=== PATIENT | female | born 1935 | race Caucasian/White ===

== ENCOUNTER 2016-03-21 15:27 | Emergency (ER) | payer MEDICARE, OTHER ==
[~2016-03-21] VITALS: Ht 157.5 cm; Wt 75.1 kg
[~2016-03-21 15:27] MED LIST: ASCO500C14 PO; ASP81TEC PO; ASPI-933 PO; CARV12.52 PO; CARV12.53 PO; CLOP75TA PO; CLPD75T PO; DOCU-161 PO; FURO20TA4 PO; FURO40TA4 PO; HYDR1TAB86 PO; LOPE2TAB17 PO; LVT.025T PO; NTR.4SL SL; PNT40TEC PO; ROSU5TAB PO
--- OUTSIDE RECORDS SUMMARY | 2016-03-21 15:34 | XMS REPORT | Continuity of Care Document ---
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 Name Role Phone JOHN LARKIN MD PCP Insurance Providers Payer Name Policy Number Subscriber Name Relationship [employer] Medicare [id number] Kathy Hall 16 Self / Same As Patient [employer] [id number] Kathy Hall 16 Self / Same As Patient Advance Directives Directive Response Recorded Date/Time Advance Directives No 01/25/14 9:16am Health Care Power of Promotions Representative No 01/25/14 9:16am Organ Donor No 01/25/14 9:16am Resuscitation Status Full Code 01/25/14 9:16am Problems Medical Problems Problem Onset Date Status ADVERSE MEDICATION REACTION Unknown Active Diarrhea Unknown Active UTI Unknown Active Closed head injury Unknown Active Facial laceration Unknown Active Visit for suture removal Unknown Active Visit for suture removal Unknown Active Thoracic back sprain Unknown Active Medications Medication Dose Route Sig Days/Qty Instructions Order Date Discontinued Date Status Aspirin 81 Mg PO DAILY 05/19/10 Active Carvedilol 1 Tab PO TWICE A DAY 05/19/10 01/26/13 Discontinued Furosemide (Lasix) 1 Tab PO DAILY 05/19/10 01/26/13 Discontinued Ascorbic Acid 500 Mg PO DAILY 05/19/10 Active Clopidogrel Bisulfate 1 Tab PO DAILY 05/19/10 01/26/13 Discontinued Rosuvastatin Calcium 5 Mg PO BEDTIME 05/19/10 Active Carvedilol (Coreg) 12.5 Mg PO TWICE A DAY 11/01/10 Active Clopidogrel Bisulfate 1 Each PO DAILY 11/01/10 01/26/13 Discontinued Furosemide (Lasix) 1 Each PO DAILY 11/01/10 01/26/13 Discontinued Rosuvastatin Calcium 1 Each PO DAILY 11/01/10 01/26/13 Discontinued Levothyroxine Sodium 1 Each PO DAILY 11/01/10 01/26/13 Discontinued Aspirin 81 Mg PO DAILY 11/01/10 01/26/13 Discontinued Nitroglycerin 0 SL NEEDED PRN CHEST PAIN 1 TAB EVERY 5 MIN X 3 DOSES NEEDED FOR CHEST PAIN 01/26/13 Active Loperamide HCl 0 PO DIRECTED PRN DIARRHEA EACH LOOSE STOOL. NOT TO EXCEED 8/24 HRS NEEDED FOR DIARRHEA 01/26/13 Active Hydrocodone Bit/Acetaminophen 0.5-1 Tab PO EVERY 6 HOURS PRN PAIN Active Furosemide (Lasix) 20 Mg PO DAILY 01/26/13 Active Pantoprazole Sodium 40 Mg PO DAILY@0700 30 Qty 02/01/13 Active Docusate Sodium 100 Mg PO THREE TIMES A DAY PRN CONSTIPATION Active Social History Social History Problem Response Recorded Date/Time Alcohol Use Denies Use 01/25/2014 9:16am Recreational Drug Use No 01/25/2014 9:16am Recent Foreign Travel No 01/25/2014 9:15am Smoking Status Never a Smoker 01/25/2014 9:16am Query Response Start Date Stop Date Smoking Status Never a Smoker Hospital Discharge Instructions No hospital discharge instructions. Plan of Care No plan of care. Functional Status No functional status results. Allergies, Adverse Reactions, Alerts Allergen Type Severity Reaction Status Last Updated fenofibrate,micronized Adverse Reaction Mild affects muscles Active Fenofibrate Nanocrystallized Adverse Reaction Mild affects muscles Active 11/01/10 caffeine ([id number]) Adverse Reaction Mild Active 11/01/10 clorazepate dipotassium ([id number]) Adverse Reaction Mild Active Alprazolam Adverse Reaction Mild hallucination Active 11/01/10 acetaminophen Adverse Reaction Mild Active 11/01/10 Streptokinase ([id number]) Adverse Reaction Intermediate throat swelling Active 11/01/10 levothyroxine sodium ([id number]) Allergy Intermediate Active 01/18/14 Cefaclor ([id number]) Adverse Reaction Mild affects muscles Active nitrofurantoin ([id number]) Adverse Reaction Unknown Active 01/18/14 simvastatin ([id number]) Allergy Intermediate Active 01/18/14 levofloxacin Adverse Reaction Mild Active 01/18/14 heparin ([id number]) Allergy Unknown Active 01/18/14 tape Adverse Reaction Intermediate Active 01/18/14 Immunizations Name Given Type Tetanus Booster (TDap) Unknown Historical Vital Signs Acute Vital Signs Vital Response Date/Time Temperature (Fahrenheit) 97.8 degrees F (97.6 - 99.5) Temperature (Calculated Celsius) 36.31888 degrees C (36.4 - 37.5) Temperature Source Temporal Pulse Rate (adult) 94 bpm (60 - 90) Respiratory Rate 18 bpm (12 - 24) O2 Sat by Pulse Oximetry 96 % (88 - 100) Blood Pressure 125/78 mm Hg Pain Pain Intensity 5 Height (Feet) 5 feet Height (Inches) 2 inches Height (Calculated Centimeters) 157.653831 cm Weight (Pounds) 162 pounds Weight (Calculated Kilograms) 73.765178 kilograms Calculated BMI 29.63 Results Laboratory Results Test Name Result Units Flags Reference Collection Date/Time Result Date/ Time Comments White Blood Count 10.0 10^3/uL 4.3-11.0 01/18/2014 5:37am 01/18/2014 5: 53am Red Blood Count 3.62 10^6/uL L 4.35-5.85 01/18/2014 5:37am 01/18/2014 5: 53am Hemoglobin 11.1 G/DL L 11.5-16.0 01/18/2014 5:37am 01/18/2014 5:53am Hematocrit 34 % L 35-52 01/18/2014 5:37am 01/18/2014 5:53am Mean Corpuscular Volume 93 FL 80-99 01/18/2014 5:37am 01/18/2014 5: 53am Mean Corpuscular Hemoglobin 31 PG 25-34 01/18/2014 5:37am 01/18/2014 5: 53am Mean Corpuscular Hemoglobin Concent 33 G/DL 32-36 01/18/2014 5:37am 01/2014 5:53am Red Cell Distribution Width 14.3 % 10.0-14.5 01/18/2014 5:37am 2013 5:53am Platelet Count 150 10^3/uL 130-400 01/18/2014 5:37am 01/18/2014 5:53am Mean Platelet Volume 9.6 FL 7.4-10.4 01/18/2014 5:37am 01/18/2014 5: 53am Neutrophils (%) (Auto) 72 % 42-75 01/18/2014 5:37am 01/18/2014 5:53am Lymphocytes (%) (Auto) 18 % 12-44 01/18/2014 5:37am 01/18/2014 5:53am Monocytes (%) (Auto) 9 % 0-12 01/18/2014 5:37am 01/18/2014 5:53am Eosinophils (%) (Auto) 0 % 0-10 01/18/2014 5:37am 01/18/2014 5:53am Basophils (%) (Auto) 0 % 0-10 01/18/2014 5:37am 01/18/2014 5:53am Neutrophils # (Auto) 7.2 X 10^3 1.8-7.8 01/18/2014 5:37am 01/18/2014 5: 53am Lymphocytes # (Auto) 1.8 X 10^3 1.0-4.0 01/18/2014 5:37am 01/18/2014 5: 53am Monocytes # (Auto) 0.9 X 10^3 0.0-1.0 01/18/2014 5:37am 01/18/2014 5: 53am Eosinophils # (Auto) 0.0 10^3/uL 0.0-0.3 01/18/2014 5:37am 01/18/2014 5 :53am Basophils # (Auto) 0.0 10^3/uL 0.0-0.1 01/18/2014 5:37am 01/18/2014 5: 53am Sodium Level 136 MMOL/L 135-145 01/18/2014 5:37am 01/18/2014 6:26am Potassium Level 3.7 MMOL/L 3.6-5.0 01/18/2014 5:37am 01/18/2014 6:26am Chloride Level 101 MMOL/L 98-107 01/18/2014 5:37am 01/18/2014 6:26am Carbon Dioxide Level 28 MMOL/L 21-32 01/18/2014 5:37am 01/18/2014 6: 26am Blood Urea Nitrogen 22 MG/DL H 7-18 01/18/2014 5:37am 01/18/2014 6:26am Creatinine 0.93 MG/DL 0.60-1.30 01/18/2014 5:37am 01/18/2014 6:26am BUN/Creatinine Ratio 24 01/18/2014 5:37am 01/18/2014 6:26am Estimat Glomerular Filtration Rate 58 01/18/2014 5:37am 01/18/2014 6:26am GFR INTERPRETIVE DATA UNITS FOR ESTIMATED GFR (eGFR): mL/min/1.73 M2 REFERENCE RANGE FOR ESTIMATED GFR (eGFR) eGFR NORMAL eGFR >60 MODERATELY DECREASED eGFR 30-59 SEVERLY DECREASED eGFR 15-29 KIDNEY FAILURE <15 (OR DIALYSIS) Glucose Level 133 MG/DL H 70-105 01/18/2014 5:37am 01/18/2014 6:26am Calcium Level 8.9 MG/DL 8.5-10.1 01/18/2014 5:37am 01/18/2014 6:26am Total Bilirubin 0.7 MG/DL 0.1-1.0 01/18/2014 5:37am 01/18/2014 6:26am Alkaline Phosphatase 52 U/L 40-136 01/18/2014 5:37am 01/18/2014 6:26am Aspartate Amino Transf (AST/SGOT) 27 U/L 5-34 01/18/2014 5:37am 2013 6:26am Alanine Aminotransferase (ALT/SGPT) 17 U/L 0-55 01/18/2014 5:37am 01/18 6:26am Total Protein 6.3 G/DL L 6.4-8.2 01/18/2014 5:37am 01/18/2014 6:26am Albumin 3.7 G/DL 3.2-4.5 01/18/2014 5:37am 01/18/2014 6:26am Procedures No known history of procedures. Encounters Encounter Location Date/Time Departed Emergency Room Via [facility] 01/25/14 9:05am Departed Emergency Room [facility] 01/18/14 5:16am Recent Diagnosis
--- NOTE | 2016-03-21 16:31 | Diagnostic Imaging Report ---
EXAM: CHEST PA/LAT (2 VIEW) INDICATION: Cough. Shortness of breath. COMPARISON: Chest radiographs, 05/23/2014. FINDINGS: Normal heart size and pulmonary vascularity. No focal pulmonary opacity, pleural effusion, or pneumothorax. Calcified tortuous aorta. Postoperative changes in the right shoulder. Kyphoplasty changes involving a mid thoracic compression fracture. There is a new superior endplate compression deformity of a lower thoracic vertebral body. IMPRESSION: 1. No acute cardiopulmonary findings. 2. Mild superior endplate compression deformity of a lower thoracic vertebral body is age indeterminate but new since the prior exam. Dictated by: Dictated on workstation # [id number]
--- NOTE | 2016-03-21 16:37 | ED Cough/URI ---
General Chief Complaint: Cough/Cold/Flu Symptoms Stated Complaint: SOA, CONGESTION, STOMACH PAIN Nursing Triage Note: c/o cough, shortness of breath and productive cough for a couple days Source: patient Exam Limitations: no limitations History of Present Illness Time seen by provider: 16:37 Initial Comments To ER with shortness of breath, productive cough since yesterday. Denies fevers or chills. She states that on February 12 she fell at home striking the right posterior lower chest wall on the tank of her toilet. She is on xarelto for atrial fibrillation prescribed by Dr. Alexander at [facility] in [place]. She states she began to feel some swelling in the area that was struck by the toilet bowl so she stopped the blood thinners herself for a few days before resuming them. As time has progressed the pain has worsened to the right lower chest wall. Timing/Duration: just prior to arrival Severity/Quality: productive cough Associated Symptoms: cough Allergies and Home Medications Allergies Coded Allergies: levothyroxine sodium (Verified Allergy, Intermediate, 02/21/14) simvastatin (Verified Allergy, Intermediate, 02/21/14) muscle pain aspirin (Unverified Allergy, Unknown, 02/21/14) heparin (Verified Allergy, Unknown, 02/21/14) Streptokinase (Verified Adverse Reaction, Intermediate, throat swelling, ) Fenofibrate Nanocrystallized (Verified Adverse Reaction, Mild, affects muscles, 02/21/14) acetaminophen (Verified Adverse Reaction, Mild, 02/21/14) alprazolam (Verified Adverse Reaction, Mild, hallucination, 02/21/14) caffeine (Verified Adverse Reaction, Mild, 02/21/14) cefaclor (Verified Adverse Reaction, Mild, affects muscles, 02/21/14) clorazepate dipotassium (Verified Adverse Reaction, Mild, 02/21/14) fenofibrate,micronized (Verified Adverse Reaction, Mild, affects muscles, 02/21/14) levofloxacin (Verified Adverse Reaction, Mild, 02/21/14) diarrhea nitrofurantoin (Verified Adverse Reaction, Unknown, 02/21/14) diarrhea Uncoded Allergies: tape (Adverse Reaction, Intermediate, 01/18/14) Home Medications Ascorbic Acid 500 Mg Capsule.sa 500 MG PO DAILY (Reported) Aspirin 81 Mg Tablet.dr 81 MG PO DAILY (Reported) Carvedilol 12.5 Mg Tablet 12.5 MG PO BID (Reported) Docusate Sodium 100 Mg Capsule 100 MG PO TID PRN PRN CONSTIPATION (Reported) Furosemide 20 Mg Tablet 20 MG PO DAILY (Reported) Hydrocodone Bit/Acetaminophen 1 Each Tablet 0.5-1 TAB PO Q6H PRN PRN PAIN ( Reported) TAKES 1/2 TO 1 (10-500MG) TABLET NEEDED FOR PAIN Loperamide Hcl 2 Mg Tablet 0 PO UD PRN PRN DIARRHEA (Reported) 2 CAPS INITIALLY, THEN 1 CAP AFTER EACH LOOSE STOOL. NOT TO EXCEED 8/24 HRS NEEDED FOR DIARRHEA Nitroglycerin 0.4 Mg Tab 0 SL PRN PRN PRN CHEST PAIN (Reported) 1 TAB EVERY 5 MIN X 3 DOSES NEEDED FOR CHEST PAIN Pantoprazole Sodium 40 Mg Tablet. #30 40 MG PO DAILY@0700 Prescribed by: ALEX LARKIN on 02/01/13 0925 Rosuvastatin Calcium 5 Mg Tablet 5 MG PO HS (Reported) Constitutional: see HPI EENTM: see HPI Respiratory: no symptoms reported Cardiovascular: no symptoms reported Genitourinary: no symptoms reported Musculoskeletal: no symptoms reported Skin: no symptoms reported Psychiatric/Neurological: No Symptoms Reported Past Pfzkqaw-Puflgw-Hoausb Hx Patient Social History Alcohol Use: Denies Use Recreational Drug Use: No Smoking Status: Never a Smoker Recent Foreign Travel: No Contact w/Someone Who Travel: No Recent Infectious Disease Expo: No Recent Hopitalizations: No Immunizations Up To Date Tetanus Booster (TDap): Unknown Surgeries HX Surgeries: Yes (OVARIAN CYSTS REMOVED, FOOT, HERNIA REPAIR) Surgeries: Gallbladder Respiratory Hx Respiratory Disorders: Yes Respiratory Disorders: COPD Cardiovascular Hx Cardiac Disorders: Yes (STENT) Cardiac Disorders: Hypertension Neurological Hx Neurological Disorders: No Reproductive System Hx Reproductive Disorders: No Genitourinary Hx Genitourinary Disorders: Yes Genitourinary Disorders: Bladder Infection Gastrointestinal Hx Gastrointestinal Disorders: No Musculoskeletal Hx Musculoskeletal Disorders: No Endocrine Hx Endocrine Disorders: No HEENT HX ENT Disorders: No Cancer Hx Cancer: No Psychosocial Hx Psychiatric Problems: No Integumentary HX Skin/Integumentary Disorder: No Blood Transfusions Hx Blood Disorders: No Family Medical History Family Medial History: Cancer 09 BROTHER 09 BROTHER 09 SISTER 09 SISTER Dementia 03 MOTHER Family history: Allergy 03 MOTHER Family history: Alzheimer's disease 03 MOTHER 09 SISTER Family history: Cardiovascular disease 03 FATHER Family history: Hypertension 03 FATHER Heart disease 03 FATHER Malignant neoplasm of lung 09 BROTHER 09 BROTHER Myocardial infarction 03 FATHER Physical Exam Vital Signs Vital Sign - Last 12Hours 03/21/16 15:39 Temp 97.0 Pulse 81 Resp 20 B/P 185/103 Pulse Ox 94 O2 Delivery Room Air Capillary Refill : Less Than 3 Seconds General Appearance: WD/WN no apparent distress Eyes: Bilateral Eye EOMI, Bilateral Eye Normal Inspection, Bilateral Eye PERRL HEENT: PERRL/EOMI normal ENT inspection Neck: non-tender full range of motion Respiratory: no respiratory distress no accessory muscle use Gastrointestinal: normal bowel sounds non tender soft Neurologic/Psychiatric: alert normal mood/affect oriented x 3 Skin: normal color warm/dry Progress/Results/Core Measures Results/Orders Lab Results Laboratory Tests Test 03/21/16 16:42 Range/Units Alanine Aminotransferase (ALT/SGPT) 11 0-55 U/L Albumin 3.8 3.2-4.5 G/DL Alkaline Phosphatase 80 40-136 U/L Anion Gap 12 5-14 MMOL/L Aspartate Amino Transf (AST/SGOT) 15 5-34 U/L B-Type Natriuretic Peptide 70.2 <100.0 PG/ML BUN/Creatinine Ratio 18 Basophils # (Auto) 0.0 0.0-0.1 10^3/uL Basophils (%) (Auto) 0 0-10 % Blood Urea Nitrogen 15 7-18 MG/DL Calcium Level 9.1 8.5-10.1 MG/DL Carbon Dioxide Level 28 21-32 MMOL/L Chloride Level 101 98-107 MMOL/L Creatinine 0.82 0.60-1.30 MG/DL Eosinophils # (Auto) 0.5 H 0.0-0.3 10^3/uL Eosinophils (%) (Auto) 7 0-10 % Estimat Glomerular Filtration Rate > 60 Glucose Level 94 70-105 MG/DL Hematocrit 39 35-52 % Hemoglobin 12.5 11.5-16.0 G/DL Lymphocytes # (Auto) 1.9 1.0-4.0 X 10^3 Lymphocytes (%) (Auto) 26 12-44 % Mean Corpuscular Hemoglobin 30 25-34 PG Mean Corpuscular Hemoglobin Concent 32 32-36 G/DL Mean Corpuscular Volume 93 80-99 FL Mean Platelet Volume 9.1 7.4-10.4 FL Monocytes # (Auto) 0.8 0.0-1.0 X 10^3 Monocytes (%) (Auto) 11 0-12 % Neutrophils # (Auto) 4.0 1.8-7.8 X 10^3 Neutrophils (%) (Auto) 56 42-75 % Platelet Count 172 130-400 10^3/uL Potassium Level 4.0 3.6-5.0 MMOL/L Red Blood Count 4.18 L 4.35-5.85 10^6/uL Red Cell Distribution Width 14.2 10.0-14.5 % Sodium Level 141 135-145 MMOL/L Total Bilirubin 0.4 0.1-1.0 MG/DL Total Protein 6.8 6.4-8.2 G/DL Troponin I < 0.30 <0.30 NG/ML White Blood Count 7.1 4.3-11.0 10^3/uL Micro Results Microbiology 03/21/16 Influenza Types A,B Antigen (ANDREW) - Final, Complete My Orders Orders-DEYANIRA WARD APRN Influenza A And B Antigens (03/21/16 15:46) Chest Pa/Lat (2 View) (03/21/16 15:46) Ekg Tracing (03/21/16 16:37) Troponin I (03/21/16 16:37) BNP (03/21/16 16:37) Cbc With Automated Diff (03/21/16 16:37) Comprehensive Metabolic Panel (03/21/16 16:37) Ct Chest/Abdomen W (03/21/16 16:39) Iohexol Injection (Omnipaque 350 Mg/Ml 1 (03/21/16 17:00) Ns (Ivpb) (Sodium Chloride 0.9% Ivpb Bag (03/21/16 17:00) Medications Given in ED Current Medications Medications Dose Ordered Sig/Siddharth Route Start Time Stop Time Status Last Admin Dose Admin Iohexol 100 ml ONCE ONCE IV 03/21/16 17:00 03/21/16 17:01 DC 03/21/16 17:26 100 ML Sodium Chloride 100 ml ONCE ONCE IV 03/21/16 17:00 03/21/16 17:01 DC 03/21/16 17:26 80 ML Vital Signs/I&O Vital Sign - Last 12Hours 03/21/16 03/21/16 15:39 15:43 Temp 97.0 Pulse 81 Resp 20 B/P 185/103 Pulse Ox 94 O2 Delivery Room Air Room Air Blood Pressure Mean: 130 Diagnostic Imaging Diagonstic Imaging: Xray Plain Films/CT/US/NM/MRI: chest Comments NAME: KATHY HALL [facility] REC#: [id number] PT STATUS: REG ER : 1935 PHYSICIAN: DEYANIRA WARD APRN ADMIT DATE: 03/21/16/ER Draft Date of Exam:03/21/16 CHEST PA/LAT (2 VIEW) EXAM: CHEST PA/LAT (2 VIEW) INDICATION: Cough. Shortness of breath. COMPARISON: Chest radiographs, 05/23/2014. FINDINGS: Normal heart size and pulmonary vascularity. No focal pulmonary opacity, pleural effusion, or pneumothorax. Calcified tortuous aorta. Postoperative changes in the right shoulder. Kyphoplasty changes involving a mid thoracic compression fracture. There is a new superior endplate compression deformity of a lower thoracic vertebral body. IMPRESSION: 1. No acute cardiopulmonary findings. 2. Mild superior endplate compression deformity of a lower thoracic vertebral body is age indeterminate but new since the prior exam. Dictated on workstation # [id number] Dict: 03/21/16 1624 Trans: 03/21/16 1631 [id number] Interpreted by: LEE SELF MD Electronically signed by: NAME: KATHY HALL [facility] REC#: [id number] PT STATUS: REG ER : 1935 PHYSICIAN: DEYANIRA WARD APRN ADMIT DATE: 03/21/16/ER Draft Date of Exam:03/21/16 CT CHEST/ABDOMEN W PROCEDURE: CT chest and abdomen with contrast. TECHNIQUE: Multiple contiguous axial images were obtained through the chest and abdomen after the administration of intravenous contrast. INDICATION: Right upper quadrant abdominal pain, flank pain, diarrhea, nausea, vomiting. COMPARISON: CT abdomen 07/30/2015. CT CHEST: Small right effusion with dependent atelectasis is present. Left lung is clear. The heart and great vessels are stable. There is ectasia of the inferior aspect of the thoracic aorta. No dissection or pulmonary embolism is seen. Coronary artery disease is noted. No mass, nodule, or infiltrate is seen in the lungs. Osseous structures are stable. IMPRESSION: Small right effusion with dependent atelectasis. CT ABDOMEN: Solid organs and bowel are stable. There are some prominent lymph nodes in the mesenteric root, which are stable from the prior exam. There is no free air or free fluid. No hydronephrosis. Gallbladder is surgically absent. Stable benign liver cyst is present. Osseous structures are stable. Please note, the pelvis was not imaged. IMPRESSION: Stable benign mesenteric root lymph nodes. Otherwise, no acute abnormalities are seen within the abdomen. Dictated on workstation # [id number] Dict: 03/21/16 1745 Trans: 03/21/16 1754 [id number] Interpreted by: CHUCK BECKHAM Electronically signed by: Departure Impression Impression: Primary Impression: Bronchitis Additional Impressions: Back pain Qualified Code: M54.6 - Pain in thoracic spine Compression fracture Disposition: 01 HOME, SELF-CARE Condition: Stable Departure-Patient Inst. Decision time for Depature: 17:57 Referrals: JOHN LARKIN MD (PCP/Family) Primary Care Physician Patient Instructions: Acute Bronchitis, Adult (DC) DEYANIRA WARD APRN Mar 21, 2016 16:37 DEYANIRA WARD APRN Mar 21, 2016 16:37
[2016-03-21 16:51] LABS: BASOPHILS % (AUTO) 0 % (0-10); EOSINOPHILS # (AUTO) 0.5 10^3/uL (0.0-0.3); EOSINOPHILS % (AUTO) 7 % (0-10); LYMPHOCYTES # (AUTO) 1.9 X 10^3 (1.0-4.0); LYMPHOCYTES % (AUTO) 26 % (12-44); MEAN CORPUSCULAR HEMOGLOBIN 30 PG (25-34); MEAN CORPUSCULAR HGB CONC 32 G/DL (32-36); MEAN CORPUSCULAR VOLUME 93 FL (80-99); MEAN PLATELET VOLUME 9.1 FL (7.4-10.4); MONOCYTES # (AUTO) 0.8 X 10^3 (0.0-1.0); MONOCYTES % (AUTO) 11 % (0-12); NEUTROPHILS % (AUTO) 56 % (42-75); PLATELET COUNT 172 10^3/uL (130-400); RED BLOOD COUNT 4.18 10^6/uL (4.35-5.85); RED CELL DISTRIBUTION WIDTH 14.2 % (10.0-14.5); WHITE BLOOD COUNT 7.1 10^3/uL (4.3-11.0)
[2016-03-21] MEDS ORDERED: IOHEXOL 350 MG/ML 100 ML (OMNIPAQUE 350) VIAL IV ONE (17:00)
[2016-03-21] MEDS ORDERED: NS 100 ML (IVPB) BAG IV ONE (17:00)
[2016-03-21 17:06] LABS: ALANINE AMINOTRANSFERASE 11 U/L (0-55); ALBUMIN 3.8 G/DL (3.2-4.5); ANION GAP 12 MMOL/L (5-14); ASPARTATE AMINO TRANSFERASE 15 U/L (5-34); BILIRUBIN,TOTAL 0.4 MG/DL (0.1-1.0); BLOOD UREA NITROGEN 15 MG/DL (7-18); BUN/CREATININE RATIO 18; CALCIUM 9.1 MG/DL (8.5-10.1); CARBON DIOXIDE 28 MMOL/L (21-32); CHLORIDE 101 MMOL/L (98-107); CREATININE SERUM 0.82 MG/DL (0.60-1.30); GFR ESTIMATED > 60; GLUCOSE 94 MG/DL (70-105); SODIUM 141 MMOL/L (135-145); TOTAL PROTEIN 6.8 G/DL (6.4-8.2)
[2016-03-21 17:12] LABS: TROPONIN I < 0.30 NG/ML (<0.30)
--- NOTE | 2016-03-21 17:54 | Diagnostic Imaging Report ---
PROCEDURE: CT chest and abdomen with contrast. TECHNIQUE: Multiple contiguous axial images were obtained through the chest and abdomen after the administration of intravenous contrast. INDICATION: Right upper quadrant abdominal pain, flank pain, diarrhea, nausea, vomiting. COMPARISON: CT abdomen 07/30/2015. CT CHEST: Small right effusion with dependent atelectasis is present. Left lung is clear. The heart and great vessels are stable. There is ectasia of the inferior aspect of the thoracic aorta. No dissection or pulmonary embolism is seen. Coronary artery disease is noted. No mass, nodule, or infiltrate is seen in the lungs. Osseous structures are stable. IMPRESSION: Small right effusion with dependent atelectasis. CT ABDOMEN: Solid organs and bowel are stable. There are some prominent lymph nodes in the mesenteric root, which are stable from the prior exam. There is no free air or free fluid. No hydronephrosis. Gallbladder is surgically absent. Stable benign liver cyst is present. Osseous structures are stable. Please note, the pelvis was not imaged. IMPRESSION: Stable benign mesenteric root lymph nodes. Otherwise, no acute abnormalities are seen within the abdomen. Dictated by: Dictated on workstation # [id number]
[2016-03-21 18:18] VITALS: BP 151/82
== END 2016-03-21 18:18 | disposition home or self-care (01) ==
LOC: EDUNIT# 15:27 → ER 15:30
DX: J40 Bronchitis, not specified as acute or chronic (principal); R59.0 Localized enlarged lymph nodes; S22.050A Wedge compression fracture of T5-T6 vertebra, initial encounter for closed fracture; I10 Essential (primary) hypertension; I48.2 Chronic atrial fibrillation; Z79.82 Long term (current) use of aspirin; Z79.899 Other long term (current) drug therapy; Z95.5 Presence of coronary angioplasty implant and graft; W18.09XA Striking against other object with subsequent fall, initial encounter; Y92.012 Bathroom of single-family (private) house as the place of occurrence of the external cause; Y99.8 Other external cause status
CPT/HCPCS: 36415; 71020; 71260; 74160; 80053; 83880; 84484; 85025; 87804; 93005

== ENCOUNTER 2016-05-10 11:28 | Outpatient (RCR) | payer MEDICARE, OTHER ==
[2016-06-04] MEDS ORDERED: HYDR-3820 PO (16:12)
[2016-06-04] MEDS ORDERED: ASCO500T75 PO (16:12)
[2016-06-04] MEDS ORDERED: CARV25TA PO (16:12)
[2016-06-09] MEDS ORDERED: DILT30TA PO (10:54)
== END 2016-08-08 | disposition home or self-care (01) ==
LOC: CARD 11:28
PROVIDERS: ATTEND Internal Medicine Cardiovascular Disease
DX: I48.0 Paroxysmal atrial fibrillation (principal)
CPT/HCPCS: 93225; 93226

== ENCOUNTER 2016-06-04 10:34 | Inpatient (IN) | payer MEDICARE, OTHER ==
[2016-06-04] VITALS (9 sets, daily range): BP systolic 109–139; BP diastolic 61–101
[~2016-06-04] VITALS: Ht 188 cm; Wt 69.9 kg
[2016-06-04 11:02] LABS: BASOPHILS % (AUTO) 0 % (0-10); EOSINOPHILS # (AUTO) 0.1 10^3/uL (0.0-0.3); EOSINOPHILS % (AUTO) 1 % (0-10); LYMPHOCYTES # (AUTO) 1.2 X 10^3 (1.0-4.0); LYMPHOCYTES % (AUTO) 13 % (12-44); MEAN CORPUSCULAR HEMOGLOBIN 30 PG (25-34); MEAN CORPUSCULAR HGB CONC 32 G/DL (32-36); MEAN CORPUSCULAR VOLUME 93 FL (80-99); MEAN PLATELET VOLUME 10.6 FL (7.4-10.4); MONOCYTES # (AUTO) 0.7 X 10^3 (0.0-1.0); MONOCYTES % (AUTO) 8 % (0-12); NEUTROPHILS # (AUTO) 7.1 X 10^3 (1.8-7.8); NEUTROPHILS % (AUTO) 78 % (42-75); PLATELET COUNT 152 10^3/uL (130-400); RED BLOOD COUNT 4.02 10^6/uL (4.35-5.85); RED CELL DISTRIBUTION WIDTH 15.2 % (10.0-14.5); WHITE BLOOD COUNT 9.1 10^3/uL (4.3-11.0)
--- NOTE | 2016-06-04 11:05 | ED Cardiac General ---
History of Present Illness General Chief Complaint: Cardiac/General Problems Stated Complaint: SOA/WEAKNESS Nursing Triage Note: PT ARRIVED PER EMS, PT CO OF SOA, AND RAPID PULSE Source: patient Exam Limitations: no limitations History of Present Illness Time seen by provider: 11:03 Initial Comments To ER with reports of feeling generally weak for the past 2-3 weeks. This morning she felt so weak that she felt as though she couldn't function. She also complained of shortness of breath and tachycardia. Primary care is Dr. Hall, milled rice broker is Dr. Alexander in [place]. She is only on aspirin. She does not report any known history of atrial fibrillation. 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 Timing/Duration: getting worse, intermittent Severity: moderate NTG SL DIRECTOR GIFT: No ASA po DIRECTOR GIFT: No Associated Systoms: Shortness of Air Allergies and Home Medications Allergies Coded Allergies: levothyroxine sodium (Verified Allergy, Intermediate, 02/21/14) simvastatin (Verified Allergy, Intermediate, 02/21/14) muscle pain aspirin (Unverified Allergy, Unknown, 02/21/14) heparin (Verified Allergy, Unknown, 02/21/14) Streptokinase (Verified Adverse Reaction, Intermediate, throat swelling, ) Fenofibrate Nanocrystallized (Verified Adverse Reaction, Mild, affects muscles, 02/21/14) acetaminophen (Verified Adverse Reaction, Mild, 02/21/14) alprazolam (Verified Adverse Reaction, Mild, hallucination, 02/21/14) caffeine (Verified Adverse Reaction, Mild, 02/21/14) cefaclor (Verified Adverse Reaction, Mild, affects muscles, 02/21/14) clorazepate dipotassium (Verified Adverse Reaction, Mild, 02/21/14) fenofibrate,micronized (Verified Adverse Reaction, Mild, affects muscles, 02/21/14) levofloxacin (Verified Adverse Reaction, Mild, 02/21/14) diarrhea nitrofurantoin (Verified Adverse Reaction, Unknown, 02/21/14) diarrhea Uncoded Allergies: tape (Adverse Reaction, Intermediate, 01/18/14) Home Medications Ascorbic Acid 500 Mg Capsule.sa, 500 MG PO DAILY, (Reported) Aspirin 81 Mg Tablet.dr, 81 MG PO DAILY, (Reported) Carvedilol 12.5 Mg Tablet, 12.5 MG PO BID, (Reported) Docusate Sodium 100 Mg Capsule, 100 MG PO TID PRN for CONSTIPATION, (Reported) Furosemide 20 Mg Tablet, 20 MG PO DAILY, (Reported) Hydrocodone Bit/Acetaminophen 1 Each Tablet, 0.5-1 TAB PO Q6H PRN for PAIN, ( Reported) TAKES 1/2 TO 1 (10-500MG) TABLET NEEDED FOR PAIN Loperamide Hcl 2 Mg Tablet, 0 PO UD PRN for DIARRHEA, (Reported) 2 CAPS INITIALLY, THEN 1 CAP AFTER EACH LOOSE STOOL. NOT TO EXCEED 8/24 HRS NEEDED FOR DIARRHEA Nitroglycerin 0.4 Mg Tab, 0 SL PRN PRN for CHEST PAIN, (Reported) 1 TAB EVERY 5 MIN X 3 DOSES NEEDED FOR CHEST PAIN Pantoprazole Sodium 40 Mg Tablet.dr, 40 MG PO DAILY@0700, #30 Prescribed by: ALEX HALL on 02/01/13 0925 Rosuvastatin Calcium 5 Mg Tablet, 5 MG PO HS, (Reported) Review of Systems Constitutional: see HPI, weakness EENTM: No Symptoms Reported Respiratory: See HPI, Shortness of Air Cardiovascular: See HPI, Denies Chest Pain, Denies Edema, Irregular Heart Rate , Denies Lightheadedness, Denies Palpitations, Denies Syncope Gastrointestinal: No Symptoms Reported Genitourinary: No Symptoms Reported Musculoskeletal: no symptoms reported Skin: no symptoms reported Psychiatric/Neurological: No Symptoms Reported Endocrine: No Symptoms Reported Hematologic/Lymphatic: No Symptoms Reported Past [id number]-[id number] Hx Patient Social History Alcohol Use: Denies Use Recreational Drug Use: No Smoking Status: Never a Smoker Recent Foreign Travel: No Contact w/Someone Who Travel: No Recent Infectious Disease Expo: No Recent Hopitalizations: No Immunizations Up To Date Tetanus Booster (TDap): Unknown Surgeries HX Surgeries: Yes (OVARIAN CYSTS REMOVED, FOOT, HERNIA REPAIR) Surgeries: Gallbladder Respiratory Hx Respiratory Disorders: Yes Respiratory Disorders: COPD Cardiovascular Hx Cardiac Disorders: Yes (STENT) Cardiac Disorders: Atrial Fibrillation, Heart Attack, Hypertension Neurological Hx Neurological Disorders: No Reproductive System Hx Reproductive Disorders: No Genitourinary Hx Genitourinary Disorders: Yes Genitourinary Disorders: Bladder Infection Gastrointestinal Hx Gastrointestinal Disorders: No Musculoskeletal Hx Musculoskeletal Disorders: No Endocrine Hx Endocrine Disorders: No HEENT HX ENT Disorders: No Cancer Hx Cancer: No Psychosocial Hx Psychiatric Problems: No Integumentary HX Skin/Integumentary Disorder: No Blood Transfusions Hx Blood Disorders: No Family Medical History Family Medial History: Cancer 09 BROTHER 09 BROTHER 09 SISTER 09 SISTER Dementia 03 MOTHER Family history: Allergy 03 MOTHER Family history: Alzheimer's disease 03 MOTHER 09 SISTER Family history: Cardiovascular disease 03 FATHER Family history: Hypertension 03 FATHER Heart disease 03 FATHER Malignant neoplasm of lung 09 BROTHER 09 BROTHER Myocardial infarction 03 FATHER Physical Exam Vital Signs Vital Sign - Last 12Hours 06/04/16 10:45 Temp 97.9 Pulse 118 Resp 16 B/P (MAP) 106/85 Pulse Ox 95 O2 Delivery Nasal Cannula O2 Flow Rate 2.00 Capillary Refill : Less Than 3 Seconds General Appearance: No Apparent Distress, WD/WN HEENT: PERRL/EOMI, TMs Normal Neck: Full Range of Motion, Normal Inspection Respiratory: Lungs Clear, Normal Breath Sounds, No Accessory Muscle Use, No Respiratory Distress Cardiovascular: Normal Peripheral Pulses, Irregularly Irregular Gastrointestinal: Normal Bowel Sounds, Non Tender, Soft Extremity: Normal Capillary Refill, Normal Inspection Neurologic/Psychiatric: Alert, Oriented x3, No Motor/Sensory Deficits Skin: Normal Color, Warm/Dry Progress/Results/Core Measures Results/Orders Lab Results Laboratory Tests Test 06/04/16 10:53 Range/Units White Blood Count 9.1 4.3-11.0 10^3/uL Red Blood Count 4.02 L 4.35-5.85 10^6/uL Hemoglobin 12.1 11.5-16.0 G/DL Hematocrit 37 35-52 % Mean Corpuscular Volume 93 80-99 FL Mean Corpuscular Hemoglobin 30 25-34 PG Mean Corpuscular Hemoglobin Concent 32 32-36 G/DL Red Cell Distribution Width 15.2 H 10.0-14.5 % Platelet Count 152 130-400 10^3/uL Mean Platelet Volume 10.6 H 7.4-10.4 FL Neutrophils (%) (Auto) 78 H 42-75 % Lymphocytes (%) (Auto) 13 12-44 % Monocytes (%) (Auto) 8 0-12 % Eosinophils (%) (Auto) 1 0-10 % Basophils (%) (Auto) 0 0-10 % Neutrophils # (Auto) 7.1 1.8-7.8 X 10^3 Lymphocytes # (Auto) 1.2 1.0-4.0 X 10^3 Monocytes # (Auto) 0.7 0.0-1.0 X 10^3 Eosinophils # (Auto) 0.1 0.0-0.3 10^3/uL Basophils # (Auto) 0.0 0.0-0.1 10^3/uL Sodium Level 140 135-145 MMOL/L Potassium Level 4.1 3.6-5.0 MMOL/L Chloride Level 102 98-107 MMOL/L Carbon Dioxide Level 27 21-32 MMOL/L Anion Gap 11 5-14 MMOL/L Blood Urea Nitrogen 11 7-18 MG/DL Creatinine 0.94 0.60-1.30 MG/DL Estimat Glomerular Filtration Rate 57 BUN/Creatinine Ratio 12 Glucose Level 160 H 70-105 MG/DL Calcium Level 9.2 8.5-10.1 MG/DL Total Bilirubin 0.8 0.1-1.0 MG/DL Aspartate Amino Transf (AST/SGOT) 18 5-34 U/L Alanine Aminotransferase (ALT/SGPT) 13 0-55 U/L Alkaline Phosphatase 59 40-136 U/L Troponin I < 0.30 <0.30 NG/ML B-Type Natriuretic Peptide 222.6 H <100.0 PG/ML Total Protein 6.7 6.4-8.2 G/DL Albumin 3.8 3.2-4.5 G/DL My Orders Orders - DEYANIRA WARD TRIAGE SPECIALIST Cbc With Automated Diff (06/04/16 10:52) Comprehensive Metabolic Panel (06/04/16 10:52) Ua Culture If Indicated (06/04/16 10:52) Saline Lock/Iv-Start (06/04/16 10:52) BNP (06/04/16 10:52) Ekg Tracing (06/04/16 10:52) Troponin I (06/04/16 10:52) Chest 1 View, Ap/Pa Only (06/04/16 10:52) Diltiazem Injection (Cardizem Injection) (06/04/16 11:15) Ns Iv 500 Ml (Sodium Chloride 0.9%) (06/04/16 11:15) Sodium Chloride (Ad... W/Diltiazem Drip (06/04/16 11:15) Ct Angio Chest W (06/04/16 11:02) Iohexol Injection (Omnipaque 350 Mg/Ml 1 (06/04/16 11:15) Sodium Chloride Flush (Catheter Flush Sy (06/04/16 11:15) Ns (Ivpb) (Sodium Chloride 0.9% Ivpb Bag (06/04/16 11:15) Ekg Tracing (06/04/16 11:46) Continuous Ekg Monitoring (06/04/16 11:46) Medications Given in ED Current Medications Medications Dose Ordered Sig/Siddharth Route Start Time Stop Time Status Last Admin Dose Admin Diltiazem HCl 10 mg ONCE ONCE IVP 06/04/16 11:15 06/04/16 11:16 DC 06/04/16 11:13 10 MG Iohexol 125 ml ONCE ONCE IV 06/04/16 11:15 06/04/16 11:16 DC 06/04/16 11:46 125 ML Sodium Chloride 100 ml ONCE ONCE IV 06/04/16 11:15 06/04/16 11:16 DC 06/04/16 11:46 80 ML Vital Signs/I&O Vital Sign - Last 12Hours 06/04/16 06/04/16 10:45 11:14 Temp 97.9 97.9 Pulse 118 138 Resp 16 18 B/P (MAP) 106/85 146/77 Pulse Ox 95 95 O2 Delivery Nasal Cannula O2 Flow Rate 2.00 2.00 Blood Pressure Mean: 92 Departure Communication Time/Spoke to Admitting Phy: 13:[address] Kimball. Will offer patient transfer to her regular milled rice broker Dr Alexander in [place] if she wishes. I did discuss this with the patient and her son Zach from [facility]. Both of whom wish patient to stay here as she is from here and has no family closer than [place]. Time/Spoke to Consulting Physi: 13:15 Communication/Consulting Notified Dr valerio of consult via Esthela kenney. Will defer anticoagulant recommendations to him given her allergies to heparin (does not recall what it does to her), also states she is intolerant of Eliquis, pradaxa, xarelto, coumadin. Given her age and risk for falls, the risk of bleeding and adverse effects secondary to anticoagulant use may exceed the stroke reduction benefit provided by them. Progress Notes 1224-heart rate 110-130 atrial fibrillation with an adequate blood pressure upon arrival. After a 10 mg bolus of Cardizem and then a Cardizem drip at the same rate heart rate is down to 70s with still adequate blood pressure. Impression Impression: Primary Impression: New onset atrial fibrillation Additional Impression: Weakness Disposition: 09 ADMITTED INPATIENT Condition: Improved Decision to Admit Reason: Admit from ER (General) Decision to Admit/Date: Jun 04, 2016 Time/Decision to Admit Time: 12:24 Departure-Patient Inst. Referrals: JOHN HALL MD (PCP/Family) Primary Care Physician DEYANIRA WARD APRN Jun 04, 2016 11:05
[2016-06-04] MEDS ORDERED: NS 100 ML (IVPB) BAG IV ONE (11:15)
[2016-06-04] MEDS ORDERED: CATHETER FLUSH 10 ML SYR IV PRN (11:15)
[2016-06-04] MEDS ORDERED: NS IV 500 ML 500 ML IV SCH (11:15)
[2016-06-04] MEDS ORDERED: DILTIAZEM 25 MG/5 ML INJ (CARDIZEM) VIAL IVP ONE (11:15)
[2016-06-04] MEDS ORDERED: IOHEXOL 350 MG/ML 150 ML (OMNIPAQUE 350) VIAL IV ONE (11:15)
[2016-06-04] MEDS ORDERED: DILTIAZEM DRIP 100 MG in SODIUM CHLORIDE (ADD-VANTAGE) 100 ML IV SCH (11:15)
[2016-06-04 11:23] LABS: ALANINE AMINOTRANSFERASE 13 U/L (0-55); ALBUMIN 3.8 G/DL (3.2-4.5); ANION GAP 11 MMOL/L (5-14); ASPARTATE AMINO TRANSFERASE 18 U/L (5-34); BILIRUBIN,TOTAL 0.8 MG/DL (0.1-1.0); BLOOD UREA NITROGEN 11 MG/DL (7-18); BUN/CREATININE RATIO 12; CALCIUM 9.2 MG/DL (8.5-10.1); CARBON DIOXIDE 27 MMOL/L (21-32); CHLORIDE 102 MMOL/L (98-107); CREATININE SERUM 0.94 MG/DL (0.60-1.30); GFR ESTIMATED 57; GLUCOSE 160 MG/DL (70-105); POTASSIUM 4.1 MMOL/L (3.6-5.0); SODIUM 140 MMOL/L (135-145); TOTAL PROTEIN 6.7 G/DL (6.4-8.2)
--- NOTE | 2016-06-04 11:24 | Diagnostic Imaging Report ---
INDICATION: Arrhythmia. Portable chest 11:06 AM FINDINGS: Heart size and pulmonary vascularity are normal. Lungs are clear. There are no effusions or pneumothoraces. IMPRESSION: Negative chest. Dictated by: Dictated on workstation # [id number]
[2016-06-04 11:29] LABS: TROPONIN I < 0.30 NG/ML (<0.30)
--- NOTE | 2016-06-04 12:52 | Diagnostic Imaging Report ---
PROCEDURE: CT angiography of the chest with contrast. TECHNIQUE: Multiple contiguous axial images were obtained through the chest after uneventful bolus administration of intravenous contrast. Reconstructed CTA MIP acquisitions were also performed. INDICATION: Shortness of breath. FINDINGS: The pulmonary arteries are well opacified with no filling defects to suggest pulmonary embolism. No aortic dissection. Mild ectasia of the thoracic aorta is however seen. Prominent atherosclerotic plaque is also noted particularly within the distal descending aorta. The heart size is slightly prominent with particularly dilated left ventricle seen. The mediastinum demonstrates intracarinal lymph node enlargement measuring 1.4 cm. There are small pleural effusions. There is mild septal thickening in the lungs seen diffusely that may relate to pulmonary vascular congestion. There are nodular densities less than 1 cm in size seen posteriorly in the right upper lobe, image 35 measuring 4 mm and measuring 5 mm in the superior segment of the right lower lobe. A six-month followup CT chest would be recommended to ensure stability. There is kyphoplasty change in the mid thoracic spine involving T7 level. There is also a compression fracture of T11 that appears to be old. Sections in the upper abdomen demonstrate ectasia of the proximal abdominal aorta and atherosclerotic plaque. Suggestion of high-grade ostial left renal artery stenosis is seen. IMPRESSION: 1. No PE or aortic dissection. There is, however, ectasia and prominent atherosclerotic plaque particularly within the distal descending aorta seen. 2. 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 3. There are bilateral small pleural effusions and septal thickening probably secondary to pulmonary vascular congestion. The left atrium appears dilated. Correlate clinically and with echocardiogram as needed. 4. Nonspecific subcentimeter pulmonary nodules seen. Six-month followup CT chest to reevaluate is recommended. Dictated by: Dictated on workstation # [id number]
--- NOTE | 2016-06-04 14:17 | Consultation-Cardiology ---
HPI-Cardiology Cardiology Consultation Date of Consultation 06/04/16 Date of Admission Indication: Chest pain, Atrial fibrillation HPI 80 years old lady with history of coronary artery disease, myocardial infarction in the past, arrhythmia, questionable underlying sick sinus syndrome , was in her usual state of health, reporting that for the past couple of weeks she's been complaining of fatigue and loss of energy, started having sudden onset chest pain and shortness of breath this afternoon, came into the emergency room and noted to be in atrial fibrillation, had a Holter monitor placed recently. Has been followed by Dr. Alexander. Currently feeling better, heart rate is better controlled on Cardizem drip. Denied any syncope or near syncopal episode admit having mild diaphoresis, has been having pedal edema which has improved slightly. Home Medications & Allergies Allergies: Coded Allergies: levothyroxine sodium (Verified Allergy, Intermediate, 02/21/14) simvastatin (Verified Allergy, Intermediate, 02/21/14) muscle pain aspirin (Unverified Allergy, Unknown, 02/21/14) heparin (Verified Allergy, Unknown, 02/21/14) Streptokinase (Verified Adverse Reaction, Intermediate, throat swelling, ) Fenofibrate Nanocrystallized (Verified Adverse Reaction, Mild, affects muscles, 02/21/14) acetaminophen (Verified Adverse Reaction, Mild, 02/21/14) alprazolam (Verified Adverse Reaction, Mild, hallucination, 02/21/14) caffeine (Verified Adverse Reaction, Mild, 02/21/14) cefaclor (Verified Adverse Reaction, Mild, affects muscles, 02/21/14) clorazepate dipotassium (Verified Adverse Reaction, Mild, 02/21/14) fenofibrate,micronized (Verified Adverse Reaction, Mild, affects muscles, 02/21/14) levofloxacin (Verified Adverse Reaction, Mild, 02/21/14) diarrhea nitrofurantoin (Verified Adverse Reaction, Unknown, 02/21/14) diarrhea Uncoded Allergies: tape (Adverse Reaction, Intermediate, 01/18/14) Home Medication List Reviewed: Yes [id number]-[id number] Hx Patient Social History Marital Status: Employed/Student: retired Alcohol Use: Denies Use Recreational Drug Use: No Smoking Status: Never a Smoker Recent Foreign Travel: No Recent Infectious Disease Expo: No Recent Hopitalizations: No Immunizations Up To Date Tetanus Booster (TDap): Unknown Past Medical History discussed below Family Medical History Family History: 03 FATHER Family history: Cardiovascular disease Family history: Hypertension Heart disease Myocardial infarction 03 MOTHER Dementia Family history: Allergy Family history: Alzheimer's disease 09 BROTHER Cancer Malignant neoplasm of lung 09 BROTHER Cancer Malignant neoplasm of lung 09 SISTER Cancer 09 SISTER Cancer 09 SISTER Family history: Alzheimer's disease Constitutional: see HPI, malaise, weakness EENTM: no symptoms reported, see HPI Respiratory: see HPI, No cough, dyspnea on exertion, No hemoptysis, No orthopnea, No phlegm, short of breath, No stridor, No wheezing, No other Cardiovascular: see HPI, chest pain, edema, No Hx of Intervention, palpitations , No syncope, No vascular heart diseas, No other Gastrointestinal: no symptoms reported, see HPI Genitourinary: no symptoms reported, see HPI Musculoskeletal: no symptoms reported, see HPI Skin: no symptoms reported, see HPI Psychiatric/Neurological: No Symptoms Reported, See HPI Reviewed Test Results Reviewed Test Results Lab Laboratory Tests Test 06/04/16 10:53 Range/Units White Blood Count 9.1 4.3-11.0 10^3/uL Red Blood Count 4.02 L 4.35-5.85 10^6/uL Hemoglobin 12.1 11.5-16.0 G/DL Hematocrit 37 35-52 % Mean Corpuscular Volume 93 80-99 FL Mean Corpuscular Hemoglobin 30 25-34 PG Mean Corpuscular Hemoglobin Concent 32 32-36 G/DL Red Cell Distribution Width 15.2 H 10.0-14.5 % Platelet Count 152 130-400 10^3/uL Mean Platelet Volume 10.6 H 7.4-10.4 FL Neutrophils (%) (Auto) 78 H 42-75 % Lymphocytes (%) (Auto) 13 12-44 % Monocytes (%) (Auto) 8 0-12 % Eosinophils (%) (Auto) 1 0-10 % Basophils (%) (Auto) 0 0-10 % Neutrophils # (Auto) 7.1 1.8-7.8 X 10^3 Lymphocytes # (Auto) 1.2 1.0-4.0 X 10^3 Monocytes # (Auto) 0.7 0.0-1.0 X 10^3 Eosinophils # (Auto) 0.1 0.0-0.3 10^3/uL Basophils # (Auto) 0.0 0.0-0.1 10^3/uL Sodium Level 140 135-145 MMOL/L Potassium Level 4.1 3.6-5.0 MMOL/L Chloride Level 102 98-107 MMOL/L Carbon Dioxide Level 27 21-32 MMOL/L Anion Gap 11 5-14 MMOL/L Blood Urea Nitrogen 11 7-18 MG/DL Creatinine 0.94 0.60-1.30 MG/DL Estimat Glomerular Filtration Rate 57 BUN/Creatinine Ratio 12 Glucose Level 160 H 70-105 MG/DL Calcium Level 9.2 8.5-10.1 MG/DL Total Bilirubin 0.8 0.1-1.0 MG/DL Aspartate Amino Transf (AST/SGOT) 18 5-34 U/L Alanine Aminotransferase (ALT/SGPT) 13 0-55 U/L Alkaline Phosphatase 59 40-136 U/L Troponin I < 0.30 <0.30 NG/ML B-Type Natriuretic Peptide 222.6 H <100.0 PG/ML Total Protein 6.7 6.4-8.2 G/DL Albumin 3.8 3.2-4.5 G/DL Physical Exam Vital Signs Vital Sign - Last 12Hours 06/04/16 10:45 Temp 97.9 Pulse 118 Resp 16 B/P (MAP) 106/85 Pulse Ox 95 O2 Delivery Nasal Cannula O2 Flow Rate 2.00 Capillary Refill : Less Than 3 Seconds General Appearance: WD/WN, Mild Distress Eyes: Bilateral Eye EOMI, Bilateral Eye Normal Inspection, Bilateral Eye PERRL HEENT: PERRL/EOMI, TMs Normal, Normal ENT Inspection, Pharynx Normal Neck: Full Range of Motion, Normal Inspection, Non Tender, Supple, Carotid Bruit Respiratory: Chest Non Tender, Normal Breath Sounds, No Accessory Muscle Use, No Respiratory Distress, Crackles Cardiovascular: No Edema, No Gallop, No JVD, Normal Peripheral Pulses, Systolic Murmur, Irregularly Irregular Gastrointestinal: Normal Bowel Sounds, No Organomegaly, No Pulsatile Mass, Non Tender, Soft Back: Normal Inspection, No CVA Tenderness, No Vertebral Tenderness Extremity: Normal Capillary Refill, Normal Inspection, Normal Range of Motion, Non Tender, No Calf Tenderness, No Pedal Edema Neurologic/Psychiatric: Alert, Oriented x3, No Motor/Sensory Deficits, Normal Mood/Affect Skin: Normal Color, Warm/Dry Lymphatic: No Adenopathy A/P-Cardiology Admission Diagnosis chest pain nonspecific etiology Atrial fibrillation Coronary artery disease Hypertension Hyperlipidemia Assessment/Plan Chest pain resembling angina, reporting improvement, no acute EKG changes, patient is admitted to telemetry, will continue monitoring at this time. Next New onset atrial fibrillation, recent Holter monitor showed sinus rhythm with frequent atrial premature contractions. Patient is started on Cardizem drip, I will evaluate echocardiogram, start on heparin drip. [id number] score of 4, yearly risk of stroke without oral anticoagulation is 4 percent, patient will need oral anticoagulation History of DVT and PE, was on Coumadin until recently. I will restart Coumadin at this point. Hypertension, restart Coreg, continue on Cardizem and monitor blood pressure Hyperlipidemia, monitor lipids Coronary artery disease history of myocardial infarction 1990 with balloon angioplasty, another stent to the right coronary artery done in 2010 using Taxus 2.[address] Alexander History of abdominal aortic aneurysm and questionable renal artery aneurysm followed by Dr. Alexander Extensive allergy to multiple medications. Clinical Quality Measures AMI/AHF: ASA po Prior to arrival: ARIN Porter MD Jun 04, 2016 14:17
[2016-06-04] MEDS: DILTIAZEM DRIP 100 MG/NS 100 ML IV SCH ×4 (15:15→19:54)
[2016-06-04 15:27] LABS: BILIRUBIN,URINE NEGATIVE (NEGATIVE); KETONES,URINE NEGATIVE (NEGATIVE); LEUKOCYTE ESTERASE ,URINE 1+ (NEGATIVE); NITRITE,URINE NEGATIVE (NEGATIVE); PH,URINE 5 (5-9); PROTEIN,URINE 2+ (NEGATIVE); UROBILINOGEN,URINE NORMAL (NORMAL)
[2016-06-04 15:40] LABS: SQUAMOUS EPITHELIAL CELL,UR 0-2 /HPF; WBC,URINE RARE /HPF
[2016-06-04] MEDS ORDERED: HYDR-3820 PO (16:12)
[2016-06-04] MEDS ORDERED: ASCO500T75 PO (16:12)
[2016-06-04] MEDS ORDERED: CARV25TA PO (16:12)
[2016-06-04] MEDS ORDERED: NITROGLYCERIN SUBLINGUAL 0.4 MG TAB (NITROSTAT) SL PRN (18:00)
[2016-06-04] MEDS ORDERED: LOPERAMIDE 2 MG (IMODIUM) CAP PO PRN (18:30)
[2016-06-04] MEDS: HYDROcodone/APAP 10 MG/325 MG (LORTAB) TAB PO PRN (19:53)
[2016-06-04] MEDS: ROSUVASTATIN 5 MG (CRESTOR) TABLET PO SCH (19:53)
[2016-06-05] VITALS (23 sets, daily range): BP systolic 96–142; BP diastolic 47–85
[2016-06-05 04:59] LABS: BASOPHILS % (AUTO) 0 % (0-10); EOSINOPHILS # (AUTO) 0.1 10^3/uL (0.0-0.3); EOSINOPHILS % (AUTO) 2 % (0-10); LYMPHOCYTES # (AUTO) 1.5 X 10^3 (1.0-4.0); LYMPHOCYTES % (AUTO) 21 % (12-44); MEAN CORPUSCULAR HEMOGLOBIN 30 PG (25-34); MEAN CORPUSCULAR HGB CONC 31 G/DL (32-36); MEAN CORPUSCULAR VOLUME 95 FL (80-99); MONOCYTES # (AUTO) 0.9 X 10^3 (0.0-1.0); MONOCYTES % (AUTO) 13 % (0-12); NEUTROPHILS # (AUTO) 4.6 X 10^3 (1.8-7.8); NEUTROPHILS % (AUTO) 64 % (42-75); PLATELET COUNT 135 10^3/uL (130-400); RED BLOOD COUNT 3.63 10^6/uL (4.35-5.85); RED CELL DISTRIBUTION WIDTH 15.7 % (10.0-14.5); WHITE BLOOD COUNT 7.1 10^3/uL (4.3-11.0)
[2016-06-05 05:24] LABS: ALANINE AMINOTRANSFERASE 14 U/L (0-55); ALBUMIN 3.5 G/DL (3.2-4.5); ANION GAP 9 MMOL/L (5-14); ASPARTATE AMINO TRANSFERASE 13 U/L (5-34); BILIRUBIN,TOTAL 0.7 MG/DL (0.1-1.0); BLOOD UREA NITROGEN 12 MG/DL (7-18); BUN/CREATININE RATIO 14; CALCIUM 8.9 MG/DL (8.5-10.1); CARBON DIOXIDE 29 MMOL/L (21-32); CHLORIDE 104 MMOL/L (98-107); CREATININE SERUM 0.84 MG/DL (0.60-1.30); GFR ESTIMATED > 60; GLUCOSE 98 MG/DL (70-105); MAGNESIUM 2.3 MG/DL (1.8-2.4); PHOSPHORUS 4.1 MG/DL (2.3-4.7); POTASSIUM 4.2 MMOL/L (3.6-5.0); SODIUM 142 MMOL/L (135-145); TOTAL PROTEIN 6.1 G/DL (6.4-8.2)
[2016-06-05] MEDS: ASPIRIN E.C. 81 MG (ECOTRIN) TAB PO SCH (08:27)
[2016-06-05] MEDS: FUROSEMIDE 20 MG (LASIX) TAB PO SCH (08:27)
--- NOTE | 2016-06-05 08:45 | Cardiology Progress Note ---
Subjective Subjective/Events-last exam patient is in bed, denied any chest pain but having active shortness of breath and wheezing. Heart rate is controlled. Review of Systems General: No Chills, No Night Sweats, No Fatigue, No Malaise, No Appetite, No Other HEENT: No Head Aches, No Visual Changes, No Eye Pain, No Ear Pain, No Dysphasia , No Sinus Congestion, No Post Nasal Drip, No Sore Throat, No Other Pulmonary: Dyspnea, No Cough, No Pleuritic Chest Pain, Other Cardiovascular: No: Chest Pain, Edema, Lt Headedness, Orthopnea, Other, Palpitations, Paroxysmal Noc. Dyspnea Objective-Cardiology Exam Last Set of Vital Signs Vital Signs 06/05/16 06/05/16 06/05/16 06/05/16 06:00 06:34 07:00 07:32 Temp 97.6 Pulse 76 Resp 28 B/P (MAP) 106/47 Pulse Ox 94 O2 Delivery Nasal Cannula O2 Flow Rate 3.00 Capillary Refill : Less Than 3 Seconds I&O Bad tableGeneral: Alert, Oriented X3, Cooperative HEENT: Atraumatic, PERRLA Neck: Supple, No JVD, No Thyromegaly Lungs: Normal Air Movement, Other (rhonchi and wheezing) Heart: Normal S1, Normal S2, No Murmurs, Other (atrial fibrillation, controlled rate) Abdomen: Normal Bowel Sounds, Soft, No Tenderness, No Hepatosplenomegaly, No Masses Extremities: No Clubbing, No Cyanosis, No Edema, Normal Pulses, No Tenderness/ Swelling Skin: No Rashes, No Breakdown, No Significant Lesion Neuro: Normal Gait, Normal Speech, Strength at 5/5 X4 Ext, Normal Tone, Sensation Intact Psych/Mental Status: Mental Status NL, Mood NL Results Lab Laboratory Tests 06/04/16 10:53 06/05/16 04:25 A/P-Cardiology Admission Diagnosis chest pain nonspecific etiology Atrial fibrillation Coronary artery disease Hypertension Hyperlipidemia Assessment/Plan Chest pain resembling angina, reporting improvement, no acute EKG changes, continue to monitor at this time, evaluate troponin level today. Shortness of breath, wheezing, I'll give a dose of Lasix and continue on MAT protocol New onset atrial fibrillation, recent Holter monitor showed sinus rhythm with frequent atrial premature contractions, heart rate is controlled, I will change Cardizem to oral. Continue to monitor [id number] score of 4, yearly risk of stroke without oral anticoagulation is 4 percent, patient will need oral anticoagulation, I'll start the patient on Coumadin. History of DVT and PE, was on Coumadin until recently. I will restart Coumadin at this point. Hypertension, restart Coreg, continue on Cardizem and monitor blood pressure Hyperlipidemia, monitor lipids Coronary artery disease history of myocardial infarction 1990 with balloon angioplasty, another stent to the right coronary artery done in 2010 using Taxus 2.[address] Alexander History of abdominal aortic aneurysm and questionable renal artery aneurysm followed by Dr. Alexander Extensive allergy to multiple medications. Clinical Quality Measures AMI/AHF: ASA po Prior to arrival: No DVT/VTE Risk/Contraindication: Risk Factor Score Per Nursin RFS Level Per Nursing on Admit: 2=Moderate ARIN ORONA MD Jun 05, 2016 08:44
[2016-06-05] MEDS: ENOXAPARIN 80 MG/0.8 ML (LOVENOX) SYR SC SCH ×2 (09:12→21:16)
[2016-06-05] MEDS: CARVEDILOL 12.5 MG (COREG) TABLET PO SCH ×2 (09:12→21:16)
--- NOTE | 2016-06-05 09:12 | ECHOCARDIOGRAPHY REPORT ---
DATE OF SERVICE: 06/04/2016 PROCEDURE: Two-dimensional echocardiogram. REFERRING PHYSICIAN: Dr. Hall. INDICATION: Atrial fibrillation. MEASUREMENTS: LVID end diastolic 3.0, IVS thickness 1.1, LVPW thickness 1.1, left atrial diameter 4.4, ejection fraction 60%. FINDINGS: 1. Technical quality is good. 2. The left ventricle is normal in size with normal contractility. Systolic function appeared to be normal, estimated ejection fraction 60%. 3. The left atrium is dilated. No clots or thrombus were seen within the left atrium. 4. The right atrium and right ventricle are normal in size. No clots or thrombus were seen within the right side. 5. The mitral valve is calcified with mild mitral regurgitation noted by color Doppler flow. No mitral valve prolapse. No mitral valve stenosis. 6. The aortic valve is calcified. There is no significant aortic valve stenosis or regurgitation seen. 7. The tricuspid valve is normal in morphology with mild tricuspid regurgitation noted by color Doppler flow. Doppler across the tricuspid valve estimated a pulmonary artery pressure of 16 plus right atrial pressure 16. 8. The pulmonic valve is functioning normally. 9. No pericardial effusion. CONCLUSION: 1. Normal left ventricular size and systolic function, estimated ejection fraction 60%. 2. Left atrial dilatation. 3. Calcified mitral valve with mild mitral regurgitation, mild tricuspid regurgitation. 4. Aortic valve sclerosis, no aortic stenosis. 5. Estimated pulmonary artery pressure of 25 mmHg. Job ID: [id number] DocumentID: [id number] Dictated Date: 06/04/2016 16:58:40 Resident Care Technician Date: 06/05/2016 04:45:52 Dictated By: ARIN ORONA MD
--- NOTE | 2016-06-05 09:33 | History & Physical-Hospitalist ---
HPI History of Present Illness: HPI/Chief Complaint Pt is an 80yoCF who presented to the ED with CC of weakness and SOB. She has a PMH of CAD s/p balloon angiogrpahy in 1998 and TUAN in 2010. She follows with Dr. Alexander in [place] and recently underwent forman monitoring for her weakness. She is unsure of the results. She denies any new medicines and has been compliant with her current medicines. She has had difficulty walking recently due to dyspnea but otherwise has no concerns. She denies any lower extremity edema. Source: patient, RN/MD, RN notes reviewed Exam Limitations: no limitations Date Seen 06/05/16 Attending Physician Sarah Kimball Floyd R MD Referring Physician Date of Admission Jun 04, 2016 at 12:00 Home Medications & Allergies Home Medications Reviewed patient Home Medication Reconciliation Form Allergies Allergies Coded Allergies levothyroxine sodium (Verified Allergy, Intermediate, 02/21/14) simvastatin (Verified Allergy, Intermediate, 02/21/14) muscle pain aspirin (Unverified Allergy, Unknown, 02/21/14) heparin (Verified Allergy, Unknown, 02/21/14) streptokinase (Verified Adverse Reaction, Intermediate, throat swelling, ) Fenofibrate Nanocrystallized (Verified Adverse Reaction, Mild, affects muscles , 02/21/14) acetaminophen (Verified Adverse Reaction, Mild, 02/21/14) alprazolam (Verified Adverse Reaction, Mild, hallucination, 02/21/14) caffeine (Verified Adverse Reaction, Mild, 02/21/14) cefaclor (Verified Adverse Reaction, Mild, affects muscles, 02/21/14) clorazepate dipotassium (Verified Adverse Reaction, Mild, 02/21/14) fenofibrate,micronized (Verified Adverse Reaction, Mild, affects muscles, 02/21) levofloxacin (Verified Adverse Reaction, Mild, 02/21/14) diarrhea nitrofurantoin (Verified Adverse Reaction, Unknown, 02/21/14) diarrhea Uncoded Allergies tape ( Adverse Reaction, Intermediate, 01/18/14) Past [id number] Hx Patient Social History Marrital Status: Employed/Student: employed, retired Alcohol Use: Denies Use Recreational Drug Use: No Smoking Status: Never a Smoker Physical Abuse Screen: No Sexual Abuse: No Recent Foreign Travel: No Contact w/other who traveled: No Recent Hopitalizations: No Recent Infectious Disease Expo: No Immunizations Up To Date Tetanus Booster (TDap): Unknown Seasonal Allergies Seasonal Allergies: No Surgeries HX Surgeries: Yes (OVARIAN CYSTS REMOVED, FOOT, HERNIA REPAIR) Surgeries: Gallbladder, Orthopedic Respiratory Hx Respiratory Disorders: Yes Cardiovascular Hx Cardiovascular Disorders: Yes (STENT) Cardiac Disorders: Atrial Fibrillation, Heart Attack, Hypertension Neurological Hx Neurological Disorders: No Reproductive System Hx Reproductive Disorders: No Sexually Transmitted Disease: No HIV/AIDS: No 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 Genitourinary Hx Genitourinary Disorders: Yes Genitourinary Disorders: Bladder Infection Gastrointestinal Hx Gastrointestinal Disorders: No Gastrointestinal Disorders: Gall Bladder Disease, Irritable Bowel Musculoskeletal Hx Musculoskeletal Disorders: No Endocrine Hx Endocrine Disorders: No HEENT HX ENT Disorders: No HEENT Disorders: Cataract Cancer Hx Cancer: No Psychosocial Hx Psychiatric Problems: No Integumentary HX Skin/Integumentary Disorder: No Blood Transfusions Hx Blood Disorders: No Family Medical History Family Hx: Cancer 09 BROTHER 09 BROTHER 09 SISTER 09 SISTER Dementia 03 MOTHER Family history: Allergy 03 MOTHER Family history: Alzheimer's disease 03 MOTHER 09 SISTER Family history: Cardiovascular disease 03 FATHER Family history: Hypertension 03 FATHER Heart disease 03 FATHER Malignant neoplasm of lung 09 BROTHER 09 BROTHER Myocardial infarction 03 FATHER Review of Systems Constitutional: no symptoms reported, see HPI, weakness, other (No fevers, chills) EENTM: no symptoms reported Respiratory: dyspnea on exertion Cardiovascular: Hx of Intervention, palpitations Gastrointestinal: loss of appetite Genitourinary: no symptoms reported : No Musculoskeletal: back pain Physical Exam Physical Exam Vital Signs Vital Sign - Last 12Hours 06/04/16 10:45 Temp 97.9 Pulse 118 Resp 16 B/P (MAP) 106/85 Pulse Ox 95 O2 Delivery Nasal Cannula O2 Flow Rate 2.00 Capillary Refill : Less Than 3 Seconds General Appearance: No Apparent Distress, WD/WN Eyes: Bilateral Eye EOMI, Bilateral Eye PERRL HEENT: PERRL/EOMI Neck: Non Tender, Supple Respiratory: Chest Non Tender, Lungs Clear, Normal Breath Sounds, No Respiratory Distress Cardiovascular: No Edema, No JVD, Irregularly Irregular Gastrointestinal: Normal Bowel Sounds, Non Tender, Soft Rectal: Deferred Extremity: Normal Capillary Refill, Non Tender, No Calf Tenderness Neurologic/Psychiatric: Alert, Oriented x3, Normal Mood/Affect Skin: Normal Color, Warm/Dry Results Results/Procedures Lab Laboratory Tests 06/04/16 10:53 06/05/16 04:25 Assessment/Plan Admission Diagnosis A fib with RVR Assessment and Plan A fib with RVR - On Dilt gtt currently, discuss with Dr. Walls will transition off to home BB - Resume coreg - Will start on Coumadin, has not tolerated NOAC in past - Monitor INR - CHADsVASC 4 CAD s/p stent - On ASA, statin, BB - Echo shows EF 60%, no sig valvular disease HTN - Will controlled on Coreg Dyslipidemia - On statin, has not tolerated statins in past so will leave on lower intensity given intolerance Dispo: Transition off gtt. Monitor rate. Narda Baxter MD Clinical Quality Measures AMI/AHF: ASA po Prior to arrival: No DVT/VTE Risk/Contraindication: Risk Factor Score Per Nursin RFS Level Per Nursing on Admit: 2=Moderate NARDA BAXTER MD Jun 05, 2016 09:33
[2016-06-05] MEDS: ASCORBIC ACID (VIT C) 500 MG TABLET PO SCH (12:35)
[2016-06-05] MEDS: warFARin 5 MG (COUMADIN) TAB PO SCH (19:07)
[2016-06-05] MEDS: ROSUVASTATIN 5 MG (CRESTOR) TABLET PO SCH (21:15)
[2016-06-05] MEDS: HYDROcodone/APAP 10 MG/325 MG (LORTAB) TAB PO PRN (21:20)
[2016-06-06] VITALS (14 sets, daily range): BP systolic 91–130; BP diastolic 53–86
[2016-06-06 04:31] LABS: BASOPHILS % (AUTO) 0 % (0-10); EOSINOPHILS # (AUTO) 0.2 10^3/uL (0.0-0.3); EOSINOPHILS % (AUTO) 4 % (0-10); LYMPHOCYTES % (AUTO) 36 % (12-44); MEAN CORPUSCULAR HEMOGLOBIN 29 PG (25-34); MEAN CORPUSCULAR HGB CONC 31 G/DL (32-36); MEAN CORPUSCULAR VOLUME 96 FL (80-99); MEAN PLATELET VOLUME 10.5 FL (7.4-10.4); MONOCYTES # (AUTO) 0.7 X 10^3 (0.0-1.0); MONOCYTES % (AUTO) 13 % (0-12); NEUTROPHILS # (AUTO) 2.7 X 10^3 (1.8-7.8); NEUTROPHILS % (AUTO) 47 % (42-75); PLATELET COUNT 113 10^3/uL (130-400); RED BLOOD COUNT 3.54 10^6/uL (4.35-5.85); RED CELL DISTRIBUTION WIDTH 15.4 % (10.0-14.5); WHITE BLOOD COUNT 5.6 10^3/uL (4.3-11.0)
[2016-06-06 04:40] LABS: INR 1.2 (0.8-1.4); PROTHROMBIN TIME PATIENT 15.2 SEC (12.2-14.7)
[2016-06-06 04:59] LABS: ANION GAP 8 MMOL/L (5-14); BLOOD UREA NITROGEN 13 MG/DL (7-18); BUN/CREATININE RATIO 15; CALCIUM 8.8 MG/DL (8.5-10.1); CARBON DIOXIDE 31 MMOL/L (21-32); CHLORIDE 103 MMOL/L (98-107); CREATININE SERUM 0.88 MG/DL (0.60-1.30); GFR ESTIMATED > 60; GLUCOSE 95 MG/DL (70-105); SODIUM 142 MMOL/L (135-145)
[2016-06-06 05:12] LABS: TROPONIN I < 0.30 NG/ML (<0.30)
[2016-06-06] MEDS: DILTIAZEM DRIP 100 MG/NS 100 ML IV SCH ×2 (07:38)
[2016-06-06] MEDS: ENOXAPARIN 80 MG/0.8 ML (LOVENOX) SYR SC SCH ×2 (08:04→21:39)
[2016-06-06] MEDS: CARVEDILOL 12.5 MG (COREG) TABLET PO SCH ×2 (08:05→21:38)
[2016-06-06] MEDS: FUROSEMIDE 20 MG (LASIX) TAB PO SCH (08:05)
[2016-06-06] MEDS: ASPIRIN E.C. 81 MG (ECOTRIN) TAB PO SCH (08:05)
--- NOTE | 2016-06-06 08:56 | Cardiology Progress Note ---
Subjective Subjective/Events-last exam Patient is in bed, feeling better, still wheezing, no chest pain. Review of Systems General: No Chills, No Night Sweats, No Fatigue, No Malaise, No Appetite, No Other HEENT: No Head Aches, No Visual Changes, No Eye Pain, No Ear Pain, No Dysphasia , No Sinus Congestion, No Post Nasal Drip, No Sore Throat, No Other Pulmonary: Dyspnea, No Cough, No Pleuritic Chest Pain, Other (wheezing) Cardiovascular: No: Chest Pain, Edema, Lt Headedness, Orthopnea, Other, Palpitations, Paroxysmal Noc. Dyspnea Objective-Cardiology Exam Last Set of Vital Signs Vital Signs 06/06/16 06/06/16 06/06/16 06:00 07:00 08:00 Pulse 77 Resp 16 B/P (MAP) 116/71 Pulse Ox 95 O2 Delivery Nasal Cannula O2 Flow Rate 2.00 Capillary Refill : Less Than 3 Seconds I&O Intake and Output 06/06/16 00:00 Intake Total 1150 ml Output Total 1775 ml Balance -625 ml Intake Oral 1150 ml Output Urine Total 1775 ml General: Alert, Oriented X3, Cooperative HEENT: Atraumatic, PERRLA Neck: Supple, No JVD, No Thyromegaly Lungs: Normal Air Movement, Other (rhonchi and wheezing) Heart: Normal S1, Normal S2, No Murmurs, Other (atrial fibrillation, controlled rate) Abdomen: Normal Bowel Sounds, Soft, No Tenderness, No Hepatosplenomegaly, No Masses Extremities: No Clubbing, No Cyanosis, No Edema, Normal Pulses, No Tenderness/ Swelling Skin: No Rashes, No Breakdown, No Significant Lesion Neuro: Normal Gait, Normal Speech, Strength at 5/5 X4 Ext, Normal Tone, Sensation Intact Psych/Mental Status: Mental Status NL, Mood NL Results Lab Laboratory Tests 06/06/16 04:03 A/P-Cardiology Admission Diagnosis Chest pain nonspecific etiology Atrial fibrillation Coronary artery disease Hypertension Hyperlipidemia Assessment/Plan Chest pain nonspecific etiology, improved, chronic enzymes were negative. Shortness of breath, wheezing, still having active wheezing. continue on MAT protocol New onset atrial fibrillation, recent Holter monitor showed sinus rhythm with frequent atrial premature contractions, heart rate is controlled, continue on Coreg. Monitor heart rate and blood pressure [id number] score of 4, yearly risk of stroke without oral anticoagulation is 4 percent, patient will need oral anticoagulation, tolerating Coumadin, continue to monitor INR History of DVT and PE, was on Coumadin until recently, I restarted it and we'll continue to monitor INR Hypertension, restart Coreg, monitor blood pressure, heart rate is controlled Hyperlipidemia, monitor lipids Renal artery stenosis noted incidentally on the left renal artery on CT scan, continue to monitor Coronary artery disease history of myocardial infarction 1990 with balloon angioplasty, another stent to the right coronary artery done in 2010 using Taxus 2.[address] Alexander History of abdominal aortic aneurysm and questionable renal artery aneurysm followed by Dr. Alexander Extensive allergy to multiple medications. Clinical Quality Measures AMI/AHF: ASA po Prior to arrival: No DVT/VTE Risk/Contraindication: Risk Factor Score Per Nursin RFS Level Per Nursing on Admit: 2=Moderate ARIN ORONA MD Jun 06, 2016 08:56
--- NOTE | 2016-06-06 09:51 | Progress Note-Hospitalist ---
Subjective HPI/CC On Admission Pt is an 80yoCF who presented to the ED with CC of weakness and SOB. She has a PMH of CAD s/p balloon angiogrpahy in 1998 and TUAN in 2010. She follows with Dr. Alexander in [place] and recently underwent forman monitoring for her weakness. She is unsure of the results. She denies any new medicines and has been compliant with her current medicines. She has had difficulty walking recently due to dyspnea but otherwise has no concerns. She denies any lower extremity edema. Date Seen 06/06/16 Subjective/Events-last exam Switched to coreg yesterday. Has tolerated it well. Was up ambulating this AM and feeling steady. Has already seen Dr. Walls and is ready to transfer out of ICU. States very familiar with coumadin and monitoring INR. Review of Systems General: No Fatigue Cardiovascular: No: Lt Headedness, Palpitations Gastrointestinal: No: Abdominal Pain, Nausea, Vomiting Genitourinary: No Frequency Neurological: No: Weakness Objective Exam Vital Signs Vital Sign - Last 12Hours 06/04/16 10:45 Temp 97.9 Pulse 118 Resp 16 B/P (MAP) 106/85 Pulse Ox 95 O2 Delivery Nasal Cannula O2 Flow Rate 2.00 Capillary Refill : Less Than 3 Seconds General Appearance: No Apparent Distress, WD/WN Respiratory: No Respiratory Distress, No Accessory Muscle Use, No Crackles, Wheezing Cardiovascular: No Edema, No JVD, Irregularly Irregular Gastrointestinal: Normal Bowel Sounds, Non Tender, Soft, No Distended, No Guarding Extremity: Non Tender, No Calf Tenderness, No Pedal Edema Neurologic/Psychiatric: Alert, Oriented x3, Normal Mood/Affect Results/Procedures Lab Laboratory Tests 06/06/16 04:03 Assessment/Plan Assessment and Plan Assess & Plan/Chief Complaint A fib with RVR - Rate controlled on Coreg - Cont Coumadin, has not tolerated NOAC in past - INR 1.2 this AM - CHADsVAS 4 - Cardiology consulted, appreciate recs CAD s/p stent - On ASA, statin, BB - Echo shows EF 60%, no sig valvular disease HTN - Well controlled on Coreg Dyslipidemia - On statin, has not tolerated other statins in past so will leave on lower intensity given intolerance Wheezing - States no formal diagnosis of COPD - Will need formal PFTs as outpatient - MAT protocol order Dispo: Transfer out of ICU. MD KELLEY Motta KATELYN M MD Jun 06, 2016 09:51
[2016-06-06] MEDS: RT-ALBUTEROL/IPRATROPIUM 3 ML (DUONEB) VIAL IH SCH ×3 (10:35→18:45)
[2016-06-06] MEDS ORDERED: ALBUTEROL/IPRATROP (COMBIVENT RESPIMAT) 4 GM INHALER INH SCH (11:00)
[2016-06-06] MEDS ORDERED: RT-ALBUTEROL/IPRATROPIUM 3 ML (DUONEB) VIAL INH SCH (11:00)
[2016-06-06] MEDS ORDERED: RT-ALBUTEROL/IPRATROPIUM 3 ML (DUONEB) VIAL INH PRN (11:00)
[2016-06-06] MEDS: ASCORBIC ACID (VIT C) 500 MG TABLET PO SCH (12:46)
[2016-06-06] MEDS: warFARin 5 MG (COUMADIN) TAB PO SCH (18:09)
[2016-06-06] MEDS: ROSUVASTATIN 5 MG (CRESTOR) TABLET PO SCH (21:38)
[2016-06-07 00:49] VITALS: BP 101/60
[2016-06-07 03:43] VITALS: BP 113/71
[2016-06-07 05:42] LABS: INR 1.2 (0.8-1.4)
[2016-06-07] MEDS: RT-ALBUTEROL/IPRATROPIUM 3 ML (DUONEB) VIAL IH SCH ×3 (06:44→22:59)
[2016-06-07 08:00] VITALS: BP 96/59
--- NOTE | 2016-06-07 08:27 | Cardiology Progress Note ---
Subjective Subjective/Events-last exam Patient sitting up in chair, no new complaints. Denies any CP or dyspnea. Asking to go home. Review of Systems General: No Night Sweats, No Fatigue, No Malaise HEENT: No Visual Changes, No Dysphasia, No Sore Throat Pulmonary: No Dyspnea, No Cough Cardiovascular: No: Chest Pain, Palpitations, Paroxysmal Noc. Dyspnea Gastrointestinal: No: Abdominal Pain, Nausea, Vomiting Genitourinary: No Dysuria, No Frequency Musculoskeletal: No: back pain, neck pain Neurological: No: Change in speech, Confusion, Numbness, Weakness Objective-Cardiology Exam Last Set of Vital Signs Vital Signs 06/07/16 06/07/16 06/07/16 03:43 06:48 07:00 Temp 97.7 Pulse 130 Resp 18 B/P (MAP) 113/71 Pulse Ox 96 O2 Delivery Room Air O2 Flow Rate 3.00 Capillary Refill : Less Than 3 Seconds I&O Intake and Output 06/07/16 00:00 Intake Total 1560 ml Output Total 1250 ml Balance 310 ml Intake Oral 1560 ml Output Urine Total 1250 ml General: Alert, Oriented X3, Cooperative HEENT: Atraumatic, PERRLA Neck: Supple, No JVD, No Thyromegaly Lungs: Normal Air Movement, Other ( wheezing bilaterally) Heart: Normal S1, Normal S2, No Murmurs, Other (atrial fibrillation, controlled rate) Abdomen: Normal Bowel Sounds, Soft, No Tenderness, No Hepatosplenomegaly, No Masses Extremities: No Clubbing, No Cyanosis, No Edema, Normal Pulses, No Tenderness/ Swelling Skin: No Rashes, No Breakdown, No Significant Lesion Neuro: Normal Gait, Normal Speech, Strength at 5/5 X4 Ext, Normal Tone, Sensation Intact Psych/Mental Status: Mental Status NL, Mood NL A/P-Cardiology Admission Diagnosis Chest pain nonspecific etiology Atrial fibrillation Coronary artery disease Hypertension Hyperlipidemia Assessment/Plan Chest pain nonspecific etiology, improved,cardiac enzymes were negative. Continue to monitor. Shortness of breath, wheezing, continue on MAT protocol New onset atrial fibrillation, recent Holter monitor showed sinus rhythm with frequent atrial premature contractions, heart rate is controlled, continue on Coreg. Monitor heart rate and blood pressure [id number] score of 4, yearly risk of stroke without oral anticoagulation is 4 percent, patient will need oral anticoagulation, tolerating Coumadin, continue to monitor INR History of DVT and PE, was on Coumadin until recently, Coumadin restarted, continue to monitor INR. Hypertension,controlled. Continue to monitor BP/HR> Hyperlipidemia, monitor lipids Renal artery stenosis noted incidentally on the left renal artery on CT scan, continue to monitor Coronary artery disease history of myocardial infarction 1990 with balloon angioplasty, another stent to the right coronary artery done in 2010 using Taxus 2.[address] Alexander History of abdominal aortic aneurysm and questionable renal artery aneurysm followed by Dr. Alexander Extensive allergy to multiple medications. Clinical Quality Measures AMI/AHF: ASA po Prior to arrival: No DVT/VTE Risk/Contraindication: Risk Factor Score Per Nursin RFS Level Per Nursing on Admit: 2=Moderate HOLLY SESAY June 07, 2016 08:27
--- NOTE | 2016-06-07 09:02 | Cardiology Progress Note ---
Subjective Subjective/Events-last exam Patient is in bed, feeling better, feeling cold, denied any chest pain or shortness of breath Review of Systems General: No Chills, No Night Sweats, No Fatigue, No Malaise, No Appetite, No Other HEENT: No Head Aches, No Visual Changes, No Eye Pain, No Ear Pain, No Dysphasia , No Sinus Congestion, No Post Nasal Drip, No Sore Throat, No Other Pulmonary: No Dyspnea, No Cough, No Pleuritic Chest Pain, No Other Cardiovascular: No: Chest Pain, Edema, Lt Headedness, Orthopnea, Other, Palpitations, Paroxysmal Noc. Dyspnea Objective-Cardiology Exam Last Set of Vital Signs Vital Signs 06/07/16 06/07/16 06/07/16 03:43 06:48 07:00 Temp 97.7 Pulse 130 Resp 18 B/P (MAP) 113/71 Pulse Ox 96 O2 Delivery Room Air O2 Flow Rate 3.00 Capillary Refill : Less Than 3 Seconds I&O Intake and Output 06/07/16 00:00 Intake Total 1560 ml Output Total 1250 ml Balance 310 ml Intake Oral 1560 ml Output Urine Total 1250 ml General: Alert, Oriented X3, Cooperative HEENT: Atraumatic, PERRLA Neck: Supple, No JVD, No Thyromegaly Lungs: Normal Air Movement, Other ( wheezing bilaterally) Heart: Normal S1, Normal S2, No Murmurs, Other (atrial fibrillation, controlled rate) Abdomen: Normal Bowel Sounds, Soft, No Tenderness, No Hepatosplenomegaly, No Masses Extremities: No Clubbing, No Cyanosis, No Edema, Normal Pulses, No Tenderness/ Swelling Skin: No Rashes, No Breakdown, No Significant Lesion Neuro: Normal Gait, Normal Speech, Strength at 5/5 X4 Ext, Normal Tone, Sensation Intact Psych/Mental Status: Mental Status NL, Mood NL Results Lab Laboratory Tests Test 06/07/16 05:15 Range/Units Prothrombin Time 15.0 H 12.2-14.7 SEC INR Comment 1.2 0.8-1.4 A/P-Cardiology Admission Diagnosis Chest pain nonspecific etiology Atrial fibrillation Coronary artery disease Hypertension Hyperlipidemia Assessment/Plan Chest pain nonspecific etiology, improved,cardiac enzymes were negative. Continue to monitor. Shortness of breath, wheezing, better today, managed by primary care physician New onset atrial fibrillation, recent Holter monitor showed sinus rhythm with frequent atrial premature contractions, Tachycardic today, continue on coreg and add cardizem, continue to monitor HR and BP [id number] score of 4, yearly risk of stroke without oral anticoagulation is 4 percent, tolerating Coumadin, continue to monitor INR History of DVT and PE, was on Coumadin until recently, Coumadin restarted, continue to monitor INR. Hypertension,controlled. Continue to monitor BP/HR> Hyperlipidemia, monitor lipids Renal artery stenosis noted incidentally on the left renal artery on CT scan, continue to monitor Coronary artery disease history of myocardial infarction 1990 with balloon angioplasty, another stent to the right coronary artery done in 2010 using Taxus 2.[address] Alexander History of abdominal aortic aneurysm and questionable renal artery aneurysm followed by Dr. Alexander Extensive allergy to multiple medications. Clinical Quality Measures AMI/AHF: ASA po Prior to arrival: No DVT/VTE Risk/Contraindication: Risk Factor Score Per Nursin RFS Level Per Nursing on Admit: 2=Moderate ARIN ORONA MD June 07, 2016 09:02
[2016-06-07] MEDS: DILTIAZEM 30 MG (CARDIZEM) TAB PO SCH ×3 (09:26→19:06)
[2016-06-07] MEDS: ENOXAPARIN 80 MG/0.8 ML (LOVENOX) SYR SC SCH ×2 (09:26→20:46)
[2016-06-07] MEDS: CARVEDILOL 12.5 MG (COREG) TABLET PO SCH ×2 (09:26→20:46)
[2016-06-07] MEDS: ASPIRIN E.C. 81 MG (ECOTRIN) TAB PO SCH (09:26)
[2016-06-07] MEDS: FUROSEMIDE 20 MG (LASIX) TAB PO SCH (09:26)
[2016-06-07 12:00] VITALS: BP 94/55
[2016-06-07] MEDS: ASCORBIC ACID (VIT C) 500 MG TABLET PO SCH (12:15)
[2016-06-07] MEDS: HYDROcodone/APAP 10 MG/325 MG (LORTAB) TAB PO PRN (12:15)
--- NOTE | 2016-06-07 13:43 | Progress Note-Hospitalist ---
Standard Progress Note Progress Notes/Assess & Plan Date Seen 06/07/16 Diagnosis A fib with RVR Assess & Plan/Chief Complaint The patient is a garrulous 80-year-old white female. She was admitted with complaints of shortness of breath and irregular heartbeat. Her heart difficulties go back to 1990. More recently she has been troubled by atrial fibrillation. She used O2 at bedtime prior to coming in. She reported that she had been waking up from sleep feeling weak and that her exercise tolerance had declined. She normally sees Dr. Isael Alexander [facility] cutter in [place]. Physical exam: She appears comfortable. Lungs are clear to auscultation. CV is irregular. Abdomen is soft. Extremities show no pedal edema. Impression: Dyspnea/hypoxia. 2.previous history of coronary artery disease. 3.atrial fibrillation. Plan: It may be necessary for the patient to use her home O2 on a 24-hour per day basis. Discharge will not be possible until she achieves an INR greater than 2. Labs Laboratory Tests 06/06/16 04:03 JENN CONNOLLY MD June 07, 2016 13:43
[2016-06-07 16:23] VITALS: BP 91/57
[2016-06-07] MEDS ORDERED: warFARin 7.5 MG (COUMADIN) TAB PO NR (18:00)
[2016-06-07 20:09] VITALS: BP 112/77
[2016-06-07] MEDS: ROSUVASTATIN 5 MG (CRESTOR) TABLET PO SCH (20:46)
[2016-06-08] VITALS: BP 109/63
[2016-06-08] MEDS: DILTIAZEM 30 MG (CARDIZEM) TAB PO SCH ×5 (00:37→23:50)
[2016-06-08 04:00] VITALS: BP 99/57
[2016-06-08 05:09] LABS: INR 1.4 (0.8-1.4); PROTHROMBIN TIME PATIENT 17.2 SEC (12.2-14.7)
[2016-06-08 05:34] VITALS: BP 99/57
[2016-06-08 08:00] VITALS: BP 116/54
--- NOTE | 2016-06-08 08:28 | Cardiology Progress Note ---
Subjective Subjective/Events-last exam Patient is in bed, denies any CP or dyspnea. Denies any dizziness. Objective-Cardiology Exam Last Set of Vital Signs Vital Signs 06/08/16 06/08/16 04:00 05:34 Temp 97.8 Pulse 73 Resp 18 B/P (MAP) 99/57 Pulse Ox 91 O2 Delivery Nasal Cannula O2 Flow Rate 2.50 Capillary Refill : Less Than 3 Seconds I&O Intake and Output 06/08/16 00:00 Intake Total 1580 ml Output Total 2430 ml Balance -850 ml Intake Oral 1580 ml Output Urine Total 2430 ml General: Alert, Oriented X3, Cooperative HEENT: Atraumatic, PERRLA Neck: Supple, No JVD, No Thyromegaly Lungs: Normal Air Movement, Other (diminished breath sounds) Heart: Normal S1, Normal S2, No Murmurs, Other (atrial fibrillation, controlled rate) Abdomen: Normal Bowel Sounds, Soft, No Tenderness, No Hepatosplenomegaly, No Masses Extremities: No Clubbing, No Cyanosis, No Edema, Normal Pulses, No Tenderness/ Swelling Skin: No Rashes, No Breakdown, No Significant Lesion Neuro: Normal Gait, Normal Speech, Strength at 5/5 X4 Ext, Normal Tone, Sensation Intact Psych/Mental Status: Mental Status NL, Mood NL A/P-Cardiology Admission Diagnosis Chest pain nonspecific etiology Atrial fibrillation Coronary artery disease Hypertension Hyperlipidemia Assessment/Plan Chest pain nonspecific etiology, improved,cardiac enzymes were negative. Continue to monitor. Shortness of breath, wheezing, continues to improve, managed by primary care physician New onset atrial fibrillation, recent Holter monitor showed sinus rhythm with frequent atrial premature contractions, HR better controlled since adding Cardizem yesterday, continue to monitor. [id number] score of 4, yearly risk of stroke without oral anticoagulation is 4 percent, tolerating Coumadin, continue to monitor INR History of DVT and PE, was on Coumadin until recently, Coumadin restarted, continue to monitor INR. Hypertension,borderline hypotension. Continue to monitor BP/HR. Hyperlipidemia, monitor lipids Renal artery stenosis noted incidentally on the left renal artery on CT scan, continue to monitor Coronary artery disease history of myocardial infarction 1990 with balloon angioplasty, another stent to the right coronary artery done in 2010 using Taxus 2.[address] Alexander History of abdominal aortic aneurysm and questionable renal artery aneurysm followed by Dr. Alexander Extensive allergy to multiple medications. Clinical Quality Measures AMI/AHF: ASA po Prior to arrival: No DVT/VTE Risk/Contraindication: Risk Factor Score Per Nursin RFS Level Per Nursing on Admit: 2=Moderate HOLLY SESAY June 08, 2016 08:28
[2016-06-08] MEDS: ENOXAPARIN 80 MG/0.8 ML (LOVENOX) SYR SC SCH ×2 (09:02→21:14)
[2016-06-08] MEDS: CARVEDILOL 12.5 MG (COREG) TABLET PO SCH ×2 (09:02→21:14)
[2016-06-08] MEDS: FUROSEMIDE 20 MG (LASIX) TAB PO SCH (09:02)
[2016-06-08] MEDS: ASPIRIN E.C. 81 MG (ECOTRIN) TAB PO SCH (09:02)
[2016-06-08] MEDS ORDERED: warFARin 10 MG (COUMADIN) TAB PO NR (09:30)
[2016-06-08] MEDS: ASCORBIC ACID (VIT C) 500 MG TABLET PO SCH (12:42)
[2016-06-08] MEDS ORDERED: warFARin 10 MG (COUMADIN) TAB PO ONE (13:00)
--- NOTE | 2016-06-08 13:27 | Progress Note-Hospitalist ---
Standard Progress Note Progress Notes/Assess & Plan Date Seen 06/08/16 Diagnosis A fib with RVR Assess & Plan/Chief Complaint The patient reports that she is waiting rather impatiently for her pro time to become therapeutic. She also expresses regret over the prospect of blood testing to maintain a therapeutic dose. Physical exam: She is alert and oriented. Lungs are clear to auscultation. CV is irregular. Extremities show no pedal edema. Impression: Atrial fibrillation with relative RVR at admission. 2.arteriosclerotic heart disease Plan: Coumadin 10 mg today. JENN CONNOLLY MD June 08, 2016 13:27
--- NOTE | 2016-06-08 15:27 | Cardiology Progress Note ---
Subjective Subjective/Events-last exam patient is laying down in bed, feeling better, no chest pain or shortness of breath at this time. Review of Systems General: No Chills, No Night Sweats, No Fatigue, No Malaise, No Appetite, No Other HEENT: No Head Aches, No Visual Changes, No Eye Pain, No Ear Pain, No Dysphasia , No Sinus Congestion, No Post Nasal Drip, No Sore Throat, No Other Pulmonary: No Dyspnea, No Cough, No Pleuritic Chest Pain, No Other Cardiovascular: No: Chest Pain, Edema, Lt Headedness, Orthopnea, Other, Palpitations, Paroxysmal Noc. Dyspnea Objective-Cardiology Exam Last Set of Vital Signs Vital Signs 06/08/16 06/08/16 08:00 10:04 Temp 97.9 Pulse 68 Resp 20 B/P (MAP) 116/54 Pulse Ox 98 O2 Delivery Nasal Cannula O2 Flow Rate 2.00 Capillary Refill : Less Than 3 Seconds I&O Intake and Output 06/08/16 00:00 Intake Total 1580 ml Output Total 2430 ml Balance -850 ml Intake Oral 1580 ml Output Urine Total 2430 ml General: Alert, Oriented X3, Cooperative HEENT: Atraumatic, PERRLA Neck: Supple, No JVD, No Thyromegaly Lungs: Normal Air Movement, Other (diminished breath sounds) Heart: Normal S1, Normal S2, No Murmurs, Other (atrial fibrillation, controlled rate) Abdomen: Normal Bowel Sounds, Soft, No Tenderness, No Hepatosplenomegaly, No Masses Extremities: No Clubbing, No Cyanosis, No Edema, Normal Pulses, No Tenderness/ Swelling Skin: No Rashes, No Breakdown, No Significant Lesion Neuro: Normal Gait, Normal Speech, Strength at 5/5 X4 Ext, Normal Tone, Sensation Intact Psych/Mental Status: Mental Status NL, Mood NL Results Lab Laboratory Tests Test 06/08/16 04:50 Range/Units Prothrombin Time 17.2 H 12.2-14.7 SEC INR Comment 1.4 0.8-1.4 A/P-Cardiology Admission Diagnosis Chest pain nonspecific etiology Atrial fibrillation Coronary artery disease Hypertension Hyperlipidemia Assessment/Plan Chest pain nonspecific etiology, improved,cardiac enzymes were negative. Continue to monitor. Shortness of breath, wheezing, continues to improve, managed by primary care physician New onset atrial fibrillation, recent Holter monitor showed sinus rhythm with frequent atrial premature contractions, HR better controlled since adding Cardizem yesterday, she was given 10 mg of Coumadin today, continue to monitor INR, I offered her to be discharged and using Lovenox as an outpatient, patient preferred to stay. [id number] score of 4, yearly risk of stroke without oral anticoagulation is 4 percent, tolerating Coumadin, continue to monitor INR History of DVT and PE, was on Coumadin until recently, Coumadin restarted, continue to monitor INR. Hypertension,borderline hypotension. Continue to monitor BP/HR. Hyperlipidemia, monitor lipids Renal artery stenosis noted incidentally on the left renal artery on CT scan, continue to monitor Coronary artery disease history of myocardial infarction 1990 with balloon angioplasty, another stent to the right coronary artery done in 2010 using Taxus 2.[address] Alexander History of abdominal aortic aneurysm and questionable renal artery aneurysm followed by Dr. Alexander Extensive allergy to multiple medications. Clinical Quality Measures AMI/AHF: ASA po Prior to arrival: No DVT/VTE Risk/Contraindication: Risk Factor Score Per Nursin RFS Level Per Nursing on Admit: 2=Moderate ARIN ORONA MD June 08, 2016 15:27
[2016-06-08 15:55] VITALS: BP 118/60
[2016-06-08] MEDS: ROSUVASTATIN 5 MG (CRESTOR) TABLET PO SCH (21:14)
[2016-06-08] MEDS: HYDROcodone/APAP 10 MG/325 MG (LORTAB) TAB PO PRN (21:14)
[2016-06-09 00:43] VITALS: BP 101/59
[2016-06-09] MEDS: DILTIAZEM 30 MG (CARDIZEM) TAB PO SCH ×2 (05:38→12:07)
[2016-06-09 06:01] VITALS: BP 126/58
[2016-06-09 07:01] LABS: INR 2.4 (0.8-1.4)
[2016-06-09 08:22] VITALS: BP 128/77
[2016-06-09] MEDS: CARVEDILOL 12.5 MG (COREG) TABLET PO SCH (08:45)
[2016-06-09] MEDS: FUROSEMIDE 20 MG (LASIX) TAB PO SCH (08:45)
[2016-06-09] MEDS: ASPIRIN E.C. 81 MG (ECOTRIN) TAB PO SCH (08:45)
[2016-06-09] MEDS: ENOXAPARIN 80 MG/0.8 ML (LOVENOX) SYR SC SCH (08:46)
--- NOTE | 2016-06-09 10:29 | Discharge Summary-Hospitalist ---
Diagnosis/Chief Complaint Date of Admission Jun 04, 2016 at 12:00 Date of Discharge Discharge Date: June 09, 2016 Admission Diagnosis A fib with RVR Discharge Diagnosis atrial fibrillation with rapid ventricular response Bleeding complication with epistaxis and hemorrhoid bleeding prompting discontinuation of anticoagulation per patient wishes Reason Hospital Visit/Course Pt is an 80yoCF who presented to the ED with CC of weakness and SOB. She has a PMH of CAD s/p balloon angiogrpahy in 1998 and TUAN in 2010. She follows with Dr. Alexander in [place] and recently underwent forman monitoring for her weakness. She is unsure of the results. She denies any new medicines and has been compliant with her current medicines. She has had difficulty walking recently due to dyspnea but otherwise has no concerns. She denies any lower extremity edema. Notes from 06/09/16 Chart Review: INR 2.4 Dr. 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 Walls Pt is stressed and would like to return home. Patient Interview: Pt does not want to be on Coumadin. Pt was on Coumadin for about 20 years, but DC the Coumadin when she had bleeding in her legs. Pt uses O2 at home QHS Pt sees Dr. Alexander in [place]. Pt confirms PCP as Dr. Hall Pt admits to having many allergies Pt has been on Eliquis and other blood thinners, but she admits to feeling weak on everything except aspirin Pt will be picked up by a friend upon DC. Pt confirms [facility] as pharmacy Pt lives at [facility] apt No fever, vital signs stable, pleasant, improved Irregular irregular rhythm, clear to auscultation bilaterally Wearing O2 No edema Plan: Home O2 eval for continuous use Follow up with Dr Alexander and Dr. Hall Scribed by Edita Hinkle under the direct supervision of Dr. Petit. Hospital course: This is an older white female Dr. Villatoro and Dr. Alexander cardiology at [facility] the presents to the ER with shortness of breath and weakness was found to be in atrial fibrillation with rapid ventricular response of Dr. Walls was consulted. Patient was managed conservatively and rate was controlled on addition of diltiazem. She was started on anticoagulations for stroke prophylaxis but had intolerance from that with nosebleeds and hemorrhoids and she is simply refused to stay on that at discharge so she was counseled by this examiner and Dr. Walls regarding the risk of stroke due to atrial fibrillation thrombus possibility and regardless she will be discharged home with close follow-up with Dr. Hall and Dr. Alexander and monitor closely. I will have her home O2 continuous evaluation since she takes that at night time and we'll discharge once that set up. Discharge Summary Discharge Physical Examination Allergies: Coded Allergies: levothyroxine sodium (Verified Allergy, Intermediate, 02/21/14) simvastatin (Verified Allergy, Intermediate, 02/21/14) muscle pain aspirin (Unverified Allergy, Unknown, 02/21/14) heparin (Verified Allergy, Unknown, 02/21/14) streptokinase (Verified Adverse Reaction, Intermediate, throat swelling, ) Fenofibrate Nanocrystallized (Verified Adverse Reaction, Mild, affects muscles, 02/21/14) acetaminophen (Verified Adverse Reaction, Mild, 02/21/14) alprazolam (Verified Adverse Reaction, Mild, hallucination, 02/21/14) caffeine (Verified Adverse Reaction, Mild, 02/21/14) cefaclor (Verified Adverse Reaction, Mild, affects muscles, 02/21/14) clorazepate dipotassium (Verified Adverse Reaction, Mild, 02/21/14) fenofibrate,micronized (Verified Adverse Reaction, Mild, affects muscles, 02/21/14) levofloxacin (Verified Adverse Reaction, Mild, 02/21/14) diarrhea nitrofurantoin (Verified Adverse Reaction, Unknown, 02/21/14) diarrhea Uncoded Allergies: tape (Adverse Reaction, Intermediate, 01/18/14) Vitals & I&Os Vital Signs Date Time Temp Pulse Resp B/P (MAP) Pulse Ox O2 Delivery O2 Flow Rate FiO2 06/09/16 08:24 95 2.00 06/09/16 08:22 97.6 93 20 128/77 Nasal Cannula Hospital Course Labs (last 24 hrs) Laboratory Tests 06/09/16 06:18: Prothrombin Time 26.0H, INR Comment 2.4H Pending Labs Laboratory Tests 06/09/16 06:18: Prothrombin Time 26.0, INR Comment 2.4 Discharge Home Medications: Active Scripts Active Reported Hydrocodon-Acetaminophn 10-325 (Hydrocodone/Acetaminophen) 1 Each Tablet 0.5-1 Tab PO BID PRN Carvedilol 25 Mg Tablet 25 Mg PO BID Vitamin C with Mercedez Hips (Ascorbic Acid) 500 Mg Tablet 500 Mg PO 1200 Furosemide 20 Mg Tablet 20 Mg PO DAILY Imodium A-D (Loperamide HCl) 2 Mg Tablet 0 PO UD PRN 2 CAPS INITIALLY, THEN 1 CAP AFTER EACH LOOSE STOOL. NOT TO EXCEED 8/24 HRS NEEDED FOR DIARRHEA Nitrostat (Nitroglycerin) 0.4 Mg Tab SL UD PRN 1 TAB EVERY 5 MIN X 3 DOSES NEEDED FOR CHEST PAIN Crestor (Rosuvastatin Calcium) 5 Mg Tablet 5 Mg PO HS Ecotrin (Aspirin) 81 Mg Tablet.dr 81 Mg PO DAILY Instructions to patient/family Please see electonic discharge instructions given to patient. Clinical Quality Measures AMI/AHF: ASA po Prior to arrival: No DVT/VTE Risk/Contraindication: Risk Factor Score Per Nursin RFS Level Per Nursing on Admit: 2=Moderate ROBBI PETIT DO June 09, 2016 10:29
[2016-06-09] MEDS ORDERED: DILT30TA PO (10:54)
--- NOTE | 2016-06-09 11:08 | Cardiology Progress Note ---
Subjective Subjective/Events-last exam Patient is sitting up in bed, wanting to go home. Denies any CP or dyspnea. Review of Systems General: No Night Sweats, No Fatigue, No Malaise HEENT: No Visual Changes, No Dysphasia, No Sore Throat Pulmonary: No Dyspnea, No Cough Cardiovascular: No: Chest Pain, Edema, Palpitations, Paroxysmal Noc. Dyspnea Gastrointestinal: No: Abdominal Pain, Nausea, Vomiting Genitourinary: No Dysuria, No Frequency Musculoskeletal: No: back pain, neck pain Neurological: No: Change in speech, Confusion, Numbness, Weakness Objective-Cardiology Exam Last Set of Vital Signs Vital Signs 06/09/16 06/09/16 08:22 08:24 Temp 97.6 Pulse 93 Resp 20 B/P (MAP) 128/77 Pulse Ox 95 O2 Delivery Nasal Cannula O2 Flow Rate 2.00 Capillary Refill : Less Than 3 SecondsLess Than 3 Seconds I&O Intake and Output 06/09/16 00:00 Intake Total 2000 ml Output Total 1100 ml Balance 900 ml Intake Oral 2000 ml Output Urine Total 1100 ml # Voids 1 # Bowel Movements 3 General: Alert, Oriented X3, Cooperative HEENT: Atraumatic, PERRLA Neck: Supple, No JVD, No Thyromegaly Lungs: Normal Air Movement, Other (diminished breath sounds) Heart: Normal S1, Normal S2, No Murmurs, Other (atrial fibrillation, controlled rate) Abdomen: Normal Bowel Sounds, Soft, No Tenderness, No Hepatosplenomegaly, No Masses Extremities: No Clubbing, No Cyanosis, No Edema, Normal Pulses, No Tenderness/ Swelling Skin: No Rashes, No Breakdown, No Significant Lesion Neuro: Normal Gait, Normal Speech, Strength at 5/5 X4 Ext, Normal Tone, Sensation Intact Psych/Mental Status: Mental Status NL, Mood NL A/P-Cardiology Admission Diagnosis Chest pain nonspecific etiology Atrial fibrillation Coronary artery disease Hypertension Hyperlipidemia Assessment/Plan Chest pain nonspecific etiology, improved,cardiac enzymes were negative. Continue to monitor. Shortness of breath, wheezing, continues to improve, managed by primary care physician New onset atrial fibrillation, recent Holter monitor showed sinus rhythm with frequent atrial premature contractions, HR better controlled since adding Cardizem. [id number] score of 4, yearly risk of stroke without oral anticoagulation is 4 percent, INR is therapeutic. Patient refusing OAC at this time secondary to nose bleed while taking coumadin. History of DVT and PE Hypertension,borderline hypotension. Continue to monitor BP/HR. Hyperlipidemia, monitor lipids Renal artery stenosis noted incidentally on the left renal artery on CT scan, continue to monitor Coronary artery disease history of myocardial infarction 1990 with balloon angioplasty, another stent to the right coronary artery done in 2010 using Taxus 2.[address] Alexander History of abdominal aortic aneurysm and questionable renal artery aneurysm followed by Dr. Alexander Extensive allergy to multiple medications. Clinical Quality Measures AMI/AHF: ASA po Prior to arrival: No DVT/VTE Risk/Contraindication: Risk Factor Score Per Nursin RFS Level Per Nursing on Admit: 2=Moderate HOLLY SESAY June 09, 2016 11:08
[2016-06-09 11:55] VITALS: BP 113/62
[2016-06-09 12:01] VITALS: BP 113/62
[2016-06-09] MEDS: ASCORBIC ACID (VIT C) 500 MG TABLET PO SCH (12:07)
--- NOTE | 2016-06-09 12:48 | Cardiology Progress Note ---
Subjective Subjective/Events-last exam patient expressed that she has been having nosebleed and hemorrhoid bleed, does not want to take any Coumadin, I had a long discussion with the patient discussed all the risks and benefits of taking oral anticoagulation and the increased risk of stroke and DVT and , patient understand and prefer not to take the medication. Review of Systems General: No Chills, No Night Sweats, No Fatigue, No Malaise, No Appetite, No Other HEENT: No Head Aches, No Visual Changes, No Eye Pain, No Ear Pain, No Dysphasia , No Sinus Congestion, No Post Nasal Drip, No Sore Throat, No Other Pulmonary: No Dyspnea, No Cough, No Pleuritic Chest Pain, No Other Cardiovascular: No: Chest Pain, Edema, Lt Headedness, Orthopnea, Other, Palpitations, Paroxysmal Noc. Dyspnea Objective-Cardiology Exam Last Set of Vital Signs Vital Signs 06/09/16 06/09/16 10:44 12:01 Temp 97.4 Pulse 71 Resp 20 B/P (MAP) 113/62 Pulse Ox 93 O2 Delivery Room Air O2 Flow Rate 1.00 Capillary Refill : Less Than 3 SecondsLess Than 3 Seconds I&O Intake and Output 06/09/16 00:00 Intake Total 2000 ml Output Total 1100 ml Balance 900 ml Intake Oral 2000 ml Output Urine Total 1100 ml # Voids 1 # Bowel Movements 3 General: Alert, Oriented X3, Cooperative HEENT: Atraumatic, PERRLA Neck: Supple, No JVD, No Thyromegaly Lungs: Normal Air Movement, Other (diminished breath sounds) Heart: Normal S1, Normal S2, No Murmurs, Other (atrial fibrillation, controlled rate) Abdomen: Normal Bowel Sounds, Soft, No Tenderness, No Hepatosplenomegaly, No Masses Extremities: No Clubbing, No Cyanosis, No Edema, Normal Pulses, No Tenderness/ Swelling Skin: No Rashes, No Breakdown, No Significant Lesion Neuro: Normal Gait, Normal Speech, Strength at 5/5 X4 Ext, Normal Tone, Sensation Intact Psych/Mental Status: Mental Status NL, Mood NL Results Lab Laboratory Tests Test 06/09/16 06:18 Range/Units Prothrombin Time 26.0 H 12.2-14.7 SEC INR Comment 2.4 H 0.8-1.4 A/P-Cardiology Admission Diagnosis Chest pain nonspecific etiology Atrial fibrillation Coronary artery disease Hypertension Hyperlipidemia Assessment/Plan Chest pain nonspecific etiology, improved,cardiac enzymes were negative, okay for discharge and 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 [id number] score of 4, yearly risk of stroke without oral anticoagulation is 4 percent, INR is therapeutic. Patient refusing OAC at this time secondary to nose bleed while taking coumadin. History of DVT and PE Hypertension,borderline hypotension. Continue to monitor BP/HR. Hyperlipidemia, monitor lipids Renal artery stenosis noted incidentally on the left renal artery on CT scan, continue to monitor Coronary artery disease history of myocardial infarction 1990 with balloon angioplasty, another stent to the right coronary artery done in 2010 using Taxus 2.[address] Alexander History of abdominal aortic aneurysm and questionable renal artery aneurysm followed by Dr. Alexander Extensive allergy to multiple medications. Clinical Quality Measures AMI/AHF: ASA po Prior to arrival: No DVT/VTE Risk/Contraindication: Risk Factor Score Per Nursin RFS Level Per Nursing on Admit: 2=Moderate ARIN ORONA MD June 09, 2016 12:48
[2016-06-09] MEDS ORDERED: warFARin 2 MG (COUMADIN) TAB PO SCH (18:00)
== END 2016-06-09 13:18 | disposition home or self-care (01) | DRG 310 ==
LOC: EDUNIT# 10:34 → ER 10:37 → ICU 12:00 → 4TH 06-06 10:10
PROVIDERS: ADMIT Internal Medicine; ATTEND Internal Medicine
DX: I48.0 Paroxysmal atrial fibrillation (principal); R07.9 Chest pain, unspecified; I25.10 Atherosclerotic heart disease of native coronary artery without angina pectoris; Z95.5 Presence of coronary angioplasty implant and graft; E78.5 Hyperlipidemia, unspecified; R06.2 Wheezing; I10 Essential (primary) hypertension; Z66 Do not resuscitate; I49.1 Atrial premature depolarization; I71.4 Abdominal aortic aneurysm, without rupture; I70.1 Atherosclerosis of renal artery; R04.0 Epistaxis; K64.9 Unspecified hemorrhoids; Z79.82 Long term (current) use of aspirin; Z86.718 Personal history of other venous thrombosis and embolism; Z86.711 Personal history of pulmonary embolism
CPT/HCPCS: 36415; 71010; 71275; 80048; 80053; 81000; 83735; 83880; 84100; 84484; 85025; 85027; 85610; 93005; 93306; 94640; 94760; 94761; 96365; 96366

== ENCOUNTER 2016-07-28 21:00 | Outpatient (CLI) | payer MEDICARE, OTHER ==
[~2016-07-28 21:00] MED LIST changes: +ASCO500T75 PO; +CARV25TA PO; +DILT30TA PO; +HYDR-3820 PO
== END 2016-07-29 06:25 | disposition home or self-care (01) ==
LOC: SLEEP 21:00
PROVIDERS: ATTEND Nurse Practitioner Family
DX: G47.33 Obstructive sleep apnea (adult) (pediatric) (principal); I10 Essential (primary) hypertension
CPT/HCPCS: 95810